=== PATIENT | male | born 1985 | race American Indian/Alaskan Native ===

== ENCOUNTER 2016-07-29 20:22 | Emergency (ER) | payer MEDICARE ==
[2016-07-29 23:53] VITALS: BP 157/134
[2016-07-30 00:51] LABS: Hematocrit 42.5 % (35.5-45.6); Mean Corpuscular HGB Conc 33 % (32-34); Mean Corpuscular Hemoglobin 29 pg (28-32); Mean Corpuscular Volume 89 fl (84-94); Platelet Count 268 K/mm3 (140-440); Red Blood Count 4.78 M/mm3 (3.65-5.03); Red Cell Distribution Width 14.1 % (13.2-15.2); White Blood Count 7.5 K/mm3 (4.5-11.0)
[2016-07-30 01:03] LABS: BUN/Creatinine Ratio 11.11; Blood Urea Nitrogen 10 mg/dL (9-20); Carbon Dioxide 25 mmol/L (22-30); Chloride 101.4 mmol/L (98-107); Glucose 95 mg/dL (75-100); Potassium 4.2 mmol/L (3.6-5.0); Sodium 139 mmol/L (137-145)
[2016-07-30 01:04] LABS: Anion Gap 17 mmol/L
[2016-07-30 03:25] LABS: Basophils % (Manual) 0 % (0.0-1.8); Blastocytes % (Manual) 0 %
[2016-07-30 03:26] LABS: Diff Status Complete; RBC Morphology Normal
--- NOTE | 2016-07-30 13:29 | ED Elopement Review ---
ED Pt Elopement review - Results review Lab results: Laboratory Tests 07/30/16 07/30/16 07/30/16 00:29 00:29 00:29 WBC 7.5 RBC 4.78 Hgb 14.0 Hct 42.5 MCV 89 MCH 29 MCHC 33 RDW 14.1 Plt Count 268 Baso % (Auto) Real Estate Operations Manager Add Manual Diff Complete Total Counted 100 Seg Neuts % (Manual) 43.0 Band Neutrophils % 0 Lymphocytes % (Manual) 48.0 H Reactive Lymphs % (Man) 0 Monocytes % (Manual) 8.0 H Eosinophils % (Manual) 1.0 Basophils % (Manual) 0 Metamyelocytes % 0 Myelocytes % 0 Promyelocytes % 0 Blast Cells % 0 Nucleated RBC % Not Reportable Seg Neutrophils # Man 3.2 Band Neutrophils # 0.0 Lymphocytes # (Manual) 3.6 Abs React Lymphs (Man) 0.0 Monocytes # (Manual) 0.6 Eosinophils # (Manual) 0.1 Basophils # (Manual) 0.0 Metamyelocytes # 0.0 Myelocytes # 0.0 Promyelocytes # 0.0 Blast Cells # 0.0 WBC Morphology Not Reportable Hypersegmented Neuts Not Reportable Hyposegmented Neuts Not Reportable Hypogranular Neuts Not Reportable Smudge Cells Not Reportable Toxic Granulation Not Reportable Toxic Vacuolation Not Reportable Dohle Bodies Not Reportable Pelger-Huet Anomaly Not Reportable Migdalia Rods Not Reportable Platelet Estimate Appears normal Clumped Platelets Not Reportable Plt Clumps, EDTA Not Reportable Large Platelets Not Reportable Giant Platelets Not Reportable Platelet Satelliting Not Reportable Plt Morphology Comment Not Reportable RBC Morphology Normal Dimorphic RBCs Not Reportable Polychromasia Not Reportable Hypochromasia Not Reportable Poikilocytosis Not Reportable Anisocytosis Not Reportable Microcytosis Not Reportable Macrocytosis Not Reportable Spherocytes Not Reportable Pappenheimer Bodies Not Reportable Sickle Cells Not Reportable Target Cells Not Reportable Tear Drop Cells Not Reportable Ovalocytes Not Reportable Helmet Cells Not Reportable Royal-[place]don Bodies Not Reportable Rulo Rings Not Reportable Willard Cells Not Reportable Bite Cells Not Reportable Crenated Cell Not Reportable Elliptocytes Not Reportable Acanthocytes (Spur) Not Reportable Rouleaux Not Reportable Hemoglobin C Crystals Not Reportable Schistocytes Not Reportable Malaria parasites Not Reportable Vinicius Bodies Not Reportable Hem Pathologist Commnt No Sodium 139 Potassium 4.2 Chloride 101.4 Carbon Dioxide 25 Anion Gap 17 BUN 10 Creatinine 0.9 Estimated GFR > 60 BUN/Creatinine Ratio 11.11 Glucose 95 Calcium 9.0 Plasma/Serum Alcohol < 0.01 - Call Back decision Pt Call Back Decision: No action required
== END 2016-07-30 02:45 | disposition left against medical advice (07) ==
LOC: ED 20:22
DX: Z00.8 Encounter for other general examination (principal); F31.9 Bipolar disorder, unspecified; F20.9 Schizophrenia, unspecified; Z53.21 Procedure and treatment not carried out due to patient leaving prior to being seen by health care provider
CPT/HCPCS: 36415; 80048; 85007; 85025; G0480; 80320

== ENCOUNTER 2018-12-06 21:59 | Emergency (ER) | payer MEDICARE ==
[2018-12-06] MEDS ORDERED: HALDOL IM PRN (22:27)
[2018-12-06] MEDS ORDERED: ATIVAN IM PRN (22:27)
[2018-12-06] MEDS ORDERED: ATIVAN PO ONE (22:27)
[2018-12-06] MEDS ORDERED: BENADRYL IM PRN (22:27)
--- NOTE | 2018-12-06 22:33 | Emergency Department Report ---
HPI - HPI HPI: [facility] The patient is a 33-year-old male presenting with a chief complaint of auditory, visual hallucinations and homelessness. The patient states she has a history of bipolar disorder and schizophrenia. The patient states he has been "hearing noises" but cannot explain what they are. When asked if he is hearing voices the patient states he does not know. The patient states he is hearing "strange things." The patient also admits to visual hallucinations but states he cannot explain what is seen the patient states "it looks black." Patient denies suicidal or homicidal ideation. Patient appears anxious. The patient states he came to the hospital because he got kicked out of his living facility and was told he could get help at the hospital with finding a place to stay Location: Mental state Duration: [See above] Quality: Auditory and visual hallucination Severity:. Moderate Modifying factors: [see above] Context: [see above] Mode of transportation: [not driving] <GARY PINA - Last Filed: 12/07/18 00:04> <ALEXI HALE - Last Filed: 12/07/18 14:56> - General Time Seen by Provider: 12/06/18 22:19 ED Past Medical Hx - Past Medical History Hx Hypertension: Yes Hx Psychiatric Treatment: Yes (Bipolar, Schizophrenia) - Surgical History Past Surgical History?: No - Family History Family history: no significant - Social History Smoking Status: Current Every Day Smoker (1/2 pack per day) Substance Use Type: None (denies illicit drug use) <GARY PINA - Last Filed: 12/07/18 00:04> <ALEXI HALE - Last Filed: 12/07/18 14:56> - Medications Home Medications: Home Medications Medication Instructions Recorded Confirmed Last Taken Type No Known Home Medications [No 04/16/16 04/16/16 Unknown History Reported Home Medications] ED Review of Systems ROS: Stated complaint: MH Other details as noted in HPI Constitutional: no symptoms reported Eyes: denies: eye pain ENT: denies: throat pain Respiratory: no symptoms reported Cardiovascular: denies: chest pain Endocrine: no symptoms reported Gastrointestinal: denies: abdominal pain Genitourinary: denies: dysuria Musculoskeletal: denies: back pain Neurological: denies: headache Psychiatric: auditory hallucinations, visual hallucinations. denies: homicidal thoughts, suicidal thoughts <YOVANIGARY Gamez - Last Filed: 12/07/18 00:04> ROS: Stated complaint: MH Other details as noted in HPI <ALEXI HALE - Last Filed: 12/07/18 14:56> Physical Exam - Physical Exam Vital Signs: Vital Signs 12/06/18 22:03 Temperature 98.8 F Pulse Rate 121 H Respiratory 18 Rate Blood Pressure 150/102 O2 Sat by Pulse 98 Oximetry Vital Signs 12/06/18 12/06/18 12/06/18 22:03 22:25 22:29 Temperature 98.8 F Pulse Rate 121 H 122 H Respiratory 18 18 20 Rate Blood Pressure 150/102 Blood Pressure 150/86 [Right] O2 Sat by Pulse 98 92 99 Oximetry 12/06/18 12/06/18 22:42 23:34 Temperature Pulse Rate 114 H 99 H Respiratory 20 20 Rate Blood Pressure Blood Pressure [Right] O2 Sat by Pulse 99 98 Oximetry Physical Exam: GENERAL: The patient is well-developed well-nourished male sitting in chair appearing anxious HEENT: Normocephalic. Atraumatic. Extraocular motions are intact. Patient has moist mucous membranes. NECK: Supple. Trachea midline CHEST/LUNGS: Clear to auscultation. There is no respiratory distress noted. HEART/CARDIOVASCULAR: Regular. There is tachycardia. There is no gallop rub or murmur. ABDOMEN: Abdomen is soft, nontender. Patient has normal bowel sounds. There is no abdominal distention. SKIN: There is no rash. There is no edema. There is no diaphoresis. NEURO: The patient is awake, alert, and oriented. The patient is cooperative. The patient has no focal neurologic deficits. The patient has normal speech MUSCULOSKELETAL: There is no evidence of acute injury. <GUCCI PINANATALYA Gamez - Last Filed: 12/07/18 00:04> - Physical Exam Vital Signs: Vital Signs 12/06/18 12/06/18 12/06/18 22:03 22:25 22:29 Temperature 98.8 F Pulse Rate 121 H 122 H Respiratory 18 18 20 Rate Blood Pressure 150/102 Blood Pressure 150/86 [Right] O2 Sat by Pulse 98 92 99 Oximetry 12/06/18 12/06/18 12/07/18 22:42 23:34 03:19 Temperature 98.8 F Pulse Rate 114 H 99 H 106 H Respiratory 20 20 20 Rate Blood Pressure Blood Pressure 150/96 [Right] O2 Sat by Pulse 99 98 96 Oximetry <ALEXI HALE - Last Filed: 12/07/18 14:56> ED Course Vital Signs 12/06/18 22:03 Temperature 98.8 F Pulse Rate 121 H Respiratory 18 Rate Blood Pressure 150/102 O2 Sat by Pulse 98 Oximetry <HOSSEINRashidGARY - Last Filed: 12/07/18 00:04> Vital Signs 12/06/18 12/06/18 12/06/18 22:03 22:25 22:29 Temperature 98.8 F Pulse Rate 121 H 122 H Respiratory 18 18 20 Rate Blood Pressure 150/102 Blood Pressure 150/86 [Right] O2 Sat by Pulse 98 92 99 Oximetry 12/06/18 12/06/18 12/07/18 22:42 23:34 03:19 Temperature 98.8 F Pulse Rate 114 H 99 H 106 H Respiratory 20 20 20 Rate Blood Pressure Blood Pressure 150/96 [Right] O2 Sat by Pulse 99 98 96 Oximetry <ALEXI HALE - Last Filed: 12/07/18 14:56> ED Medical Decision Making - Lab Data Result diagrams: 12/06/18 22:33 12/06/18 22:33 Laboratory Tests 12/06/18 12/06/18 12/06/18 22:30 22:30 22:33 WBC 12.7 H RBC 4.88 Hgb 15.2 Hct 43.5 MCV 89 MCH 31 MCHC 35 H RDW 14.4 Plt Count 283 Lymph % (Auto) 24.5 [place] % (Auto) 7.3 Eos % (Auto) 3.6 Baso % (Auto) 0.7 Lymph # 3.1 [place] # 0.9 H Eos # 0.5 H Baso # 0.1 Seg Neutrophils % 63.9 Seg Neutrophils # 8.1 H Sodium Potassium Chloride Carbon Dioxide Anion Gap BUN Creatinine Estimated GFR BUN/Creatinine Ratio Glucose Calcium Urine Color Yellow Urine Turbidity Clear Urine pH 5.0 Ur Specific [place] 1.030 Urine Protein <15 mg/dl Urine Glucose (UA) Neg Urine Ketones Tr Urine Blood Neg Urine Nitrite Neg Urine Bilirubin Neg Urine Urobilinogen 2.0 Ur Leukocyte Esterase Neg Urine WBC (Auto) 1.0 Urine RBC (Auto) 1.0 U Epithel Cells (Auto) < 1.0 Urine Mucus Few Salicylates Urine Opiates Screen Presumptive negative Urine Methadone Screen Presumptive negative Acetaminophen Ur Barbiturates Screen Presumptive negative Ur Phencyclidine Scrn Presumptive negative Ur Amphetamines Screen Presumptive negative U Benzodiazepines Scrn Presumptive negative Urine Cocaine Screen Presumptive negative U Marijuana (THC) Screen Presumptive negative Plasma/Serum Alcohol 12/06/18 12/06/18 12/06/18 22:33 22:33 22:33 WBC RBC Hgb Hct MCV MCH MCHC RDW Plt Count Lymph % (Auto) [place] % (Auto) Eos % (Auto) Baso % (Auto) Lymph # [place] # Eos # Baso # Seg Neutrophils % Seg Neutrophils # Sodium 137 Potassium 3.9 Chloride 97.7 L Carbon Dioxide 25 Anion Gap 18 BUN 13 Creatinine 1.1 Estimated GFR > 60 BUN/Creatinine Ratio 12 Glucose 113 H Calcium 9.9 Urine Color Urine Turbidity Urine pH Ur Specific [place] Urine Protein Urine Glucose (UA) Urine Ketones Urine Blood Urine Nitrite Urine Bilirubin Urine Urobilinogen Ur Leukocyte Esterase Urine WBC (Auto) Urine RBC (Auto) U Epithel Cells (Auto) Urine Mucus Salicylates < 0.3 L Urine Opiates Screen Urine Methadone Screen Acetaminophen < 5.0 L Ur Barbiturates Screen Ur Phencyclidine Scrn Ur Amphetamines Screen U Benzodiazepines Scrn Urine Cocaine Screen U Marijuana (THC) Screen Plasma/Serum Alcohol 12/06/18 22:33 WBC RBC Hgb Hct MCV MCH MCHC RDW Plt Count Lymph % (Auto) [place] % (Auto) Eos % (Auto) Baso % (Auto) Lymph # [place] # Eos # Baso # Seg Neutrophils % Seg Neutrophils # Sodium Potassium Chloride Carbon Dioxide Anion Gap BUN Creatinine Estimated GFR BUN/Creatinine Ratio Glucose Calcium Urine Color Urine Turbidity Urine pH Ur Specific [place] Urine Protein Urine Glucose (UA) Urine Ketones Urine Blood Urine Nitrite Urine Bilirubin Urine Urobilinogen Ur Leukocyte Esterase Urine WBC (Auto) Urine RBC (Auto) U Epithel Cells (Auto) Urine Mucus Salicylates Urine Opiates Screen Urine Methadone Screen Acetaminophen Ur Barbiturates Screen Ur Phencyclidine Scrn Ur Amphetamines Screen U Benzodiazepines Scrn Urine Cocaine Screen U Marijuana (THC) Screen Plasma/Serum Alcohol < 0.01 - Differential Diagnosis bipolar disorder, harry, homelessness <GARY PINA - Last Filed: 12/07/18 00:04> - Lab Data Result diagrams: 12/06/18 22:33 12/06/18 22:33 - Medical Decision Making Patient has been cleared by our psychiatric team to go to the [facility] with anchor however the patient has elected to be discharged to go to his psychiatric security nurse's house. <ALEXI HALE - Last Filed: 12/07/18 14:56> Critical care attestation.: If time is entered above; I have spent that time in minutes in the direct care of this critically ill patient, excluding procedure time. <GARY PINA - Last Filed: 12/07/18 00:04> Critical care attestation.: If time is entered above; I have spent that time in minutes in the direct care of this critically ill patient, excluding procedure time. <ALEXI HALE - Last Filed: 12/07/18 14:56> ED Disposition <GARY PINA - Last Filed: 12/07/18 00:04> Is pt being admited?: No Does the pt Need Aspirin: No Time of Disposition: 14:55 <ALEXI HALE - Last Filed: 12/07/18 14:56> Clinical Impression: Homelessness, Bipolar disorder Disposition: - TO HOME OR SELFCARE Condition: Stable [facility] [Primary Care Provider[facility] - 3-5 Days
[2018-12-06 23:01] LABS: Basophils # (Auto) 0.1 K/mm3 (0.0-0.1); Basophils % (Auto) 0.7 % (0.0-1.8); Eosinophils # (Auto) 0.5 K/mm3 (0.0-0.4); Eosinophils % (Auto) 3.6 % (0.0-4.3); Hematocrit 43.5 % (35.5-45.6); Hemoglobin 15.2 gm/dl (11.8-15.2); Lymphocytes # (Auto) 3.1 K/mm3 (1.2-5.4); Lymphocytes % (Auto) 24.5 % (13.4-35.0); Mean Corpuscular HGB Conc 35 % (32-34); Mean Corpuscular Volume 89 fl (84-94); Monocytes # (Auto) 0.9 K/mm3 (0.0-0.8); Monocytes % (Auto) 7.3 % (0.0-7.3); Platelet Count 283 K/mm3 (140-440); Red Blood Count 4.88 M/mm3 (3.65-5.03); Red Cell Distribution Width 14.4 % (13.2-15.2)
[2018-12-06 23:20] LABS: BUN/Creatinine Ratio 12; Blood Urea Nitrogen 13 mg/dL (9-20); Calcium 9.9 mg/dL (8.4-10.2); Hemolysis Index 26
[2018-12-06 23:48] LABS: Bilirubin,Urine NEG (Negative); Blood,Urine NEG (Negative); Color,Urine Yellow (Yellow); Mucus,Urine FEW /HPF; Protein,Urine <15 mg/dL mg/dL (Negative)
[2018-12-06 23:56] LABS: Amphetamine Screen,Urine PRESUMPTIVE NEGATIVE; Benzodiazepines Screen,Urine PRESUMPTIVE NEGATIVE; Cannabinoid Screen,Urine PRESUMPTIVE NEGATIVE; Cocaine Screen,Urine PRESUMPTIVE NEGATIVE; Methadone Screen,Urine PRESUMPTIVE NEGATIVE; Opiate Screen,Urine PRESUMPTIVE NEGATIVE
[2018-12-07 03:31] VITALS: BP 150/96
[2018-12-07] MEDS ORDERED: NACL 0.9% 1000 ML 1,000 ML IV ONE (04:08)
[2018-12-07] MEDS ORDERED: NACL 0.9% 1000 ML 1,000 ML ONE (04:11)
== END 2018-12-07 15:08 | disposition home or self-care (01) ==
LOC: ED 21:59 → EEVIPCON 21:59 → ED 12-07 15:08
DX: F31.9 Bipolar disorder, unspecified (principal); Z59.0 Homelessness
CPT/HCPCS: 36415; 80048; 80307; 81001; 85025; 99283; G0480; J7030; 80320

== ENCOUNTER 2018-12-14 22:55 | Emergency (ER) | payer MEDICARE ==
[2018-12-14 23:34] LABS: Basophils # (Auto) 0.1 K/mm3 (0.0-0.1); Basophils % (Auto) 0.5 % (0.0-1.8); Eosinophils # (Auto) 0.4 K/mm3 (0.0-0.4); Eosinophils % (Auto) 2.8 % (0.0-4.3); Hematocrit 43.3 % (35.5-45.6); Hemoglobin 14.6 gm/dl (11.8-15.2); Lymphocytes # (Auto) 3.5 K/mm3 (1.2-5.4); Lymphocytes % (Auto) 25.8 % (13.4-35.0); Mean Corpuscular HGB Conc 34 % (32-34); Mean Corpuscular Volume 89 fl (84-94); Monocytes # (Auto) 0.9 K/mm3 (0.0-0.8); Monocytes % (Auto) 6.6 % (0.0-7.3); Platelet Count 307 K/mm3 (140-440); Red Blood Count 4.87 M/mm3 (3.65-5.03); Red Cell Distribution Width 13.9 % (13.2-15.2)
[2018-12-14 23:43] LABS: Bilirubin,Urine NEG (Negative); Blood,Urine NEG (Negative); Color,Urine Amber (Yellow); Mucus,Urine 2+ /HPF
[2018-12-14 23:49] LABS: Amphetamine Screen,Urine PRESUMPTIVE NEGATIVE; Benzodiazepines Screen,Urine PRESUMPTIVE NEGATIVE; Cannabinoid Screen,Urine PRESUMPTIVE NEGATIVE; Cocaine Screen,Urine PRESUMPTIVE NEGATIVE; Methadone Screen,Urine PRESUMPTIVE NEGATIVE; Opiate Screen,Urine PRESUMPTIVE NEGATIVE
[2018-12-15 00:19] LABS: BUN/Creatinine Ratio 10; Blood Urea Nitrogen 10 mg/dL (9-20); Calcium 9.4 mg/dL (8.4-10.2); Hemolysis Index 8
[2018-12-15] MEDS ORDERED: K-DUR PO ONE (00:59)
--- NOTE | 2018-12-15 01:18 | Emergency Department Report ---
ED Psych HPI - General Chief Complaint: Psych Stated Complaint: MH EVAL/HEARING VOICES Time Seen by Provider: 12/14/18 23:24 Source: patient, old records reviewed Mode of arrival: Ambulatory Limitations: No Limitations - History of Present Illness Initial Comments: 33-year-old male with past smoking history of sleep apnea not currently using CPAP, bipolar disorder, schizophrenia, and hypertension presents to the hospital depending of auditory hallucinations. Patient states the voices are telling him they are going to kill him. He denies suicidal or homicidal ideation. He denies physical complaints. He states he is compliant with his medications. On 12/07 patient was seen here for psychosis as well. Patient was cleared by our psychiatric team to go to the [facility] with anchor however the patient has elected to be discharged to go to his chief wheelage clerk's house. As per medical record - Related Data Home Medications Medication Instructions Recorded Confirmed Last Taken No Known Home Medications [No 04/16/16 12/15/18 Unknown Reported Home Medications] Allergies Allergy/AdvReac Type Severity Reaction Status Date / Time No Known Allergies Allergy Verified 04/17/16 10:26 ED Review of Systems ROS: Stated complaint: MH EVAL/HEARING VOICES Other details as noted in HPI Comment: All other systems reviewed and negative ED Past Medical Hx - Past Medical History Previous Medical History?: Yes Hx Hypertension: Yes Hx Psychiatric Treatment: Yes (Bipolar, Schizophrenia) Additional medical history: Sleep apnea - Surgical History Past Surgical History?: No - Social History Smoking Status: Current Every Day Smoker Substance Use Type: None - Medications Home Medications: Home Medications Medication Instructions Recorded Confirmed Last Taken Type No Known Home Medications [No 04/16/16 12/15/18 Unknown History Reported Home Medications] ED Physical Exam - General Limitations: No Limitations - Other Other exam information: General: No limitations, patient is alert in no acute distress Head exam: Atraumatic, normocephalic Eyes exam: Normal appearance ENT: Moist mucous membrane Neck exam: Normal inspection, full range of motion, no meningismus nontender Respiratory exam: Clear to auscultation bilateral, no wheezes, rales, crackles Cardiovascular: Normal rate and rhythm, normal heart sounds Abdomen: Soft, nondistended, and nontender, with normal bowel sounds, no rebound, or guarding Extremity: Full range of motion normal inspection no deformity Back: Normal Inspection, full range of motion, no tenderness Neurologic: Alert, oriented x3, cranial nerves intact, no motor or sensory de ficit Psychiatric: normal affect, normal mood Skin: Warm, dry, intact ED Course Vital Signs 12/14/18 12/15/18 12/15/18 23:03 00:28 12:15 Temperature 98 F 98.5 F Pulse Rate 114 H 98 H 87 Respiratory 18 Rate Blood Pressure 120/87 124/86 [Right] O2 Sat by Pulse 97 91 Oximetry 12/15/18 12/15/18 12/15/18 19:15 22:45 22:55 Temperature 98.5 F Pulse Rate 93 H 89 Respiratory 24 20 Rate Blood Pressure 128/81 [Right] O2 Sat by Pulse 98 98 98 Oximetry 12/16/18 01:55 Temperature 97.7 F Pulse Rate 80 Respiratory 20 Rate Blood Pressure 141/93 [Right] O2 Sat by Pulse 100 Oximetry - Reevaluation(s) Reevaluation #1: 12/15/18 22:24 Discussed signs this patient has been sleeping throughout the day with history of sleep apnea. A DT was ordered earlier, patient refused. Given that patient does have a history of sleep apnea and has been drowsy all day I have ordered BiPAP support. Will reassess patient's mental status and continued to request cooperation for ABG. Reevaluation #2: 12/15/18 22:59 Patient finally conceded a received ABG which shows a normal pH without significant CO2 retention (compensated with normal ph) therefore BiPAP is not needed. Patient does have mild hypoxia but PaO2 is not low enough to require home oxygen. CPAP attempted but patient also refused. I suspect obesity hypoventilation syndrome and will perform cta to r/u other acute abnormality prior to clearance 12/15/18 23:04 ED Medical Decision Making - Lab Data Result diagrams: 12/14/18 23:15 12/14/18 23:15 Lab Results 12/14/18 12/14/18 12/14/18 Range/Units 23:15 23:15 23:15 WBC (4.5-11.0) K/mm3 RBC (3.65-5.03) M/mm3 Hgb (11.8-15.2) gm/dl Hct (35.5-45.6) % MCV (84-94) fl MCH (28-32) pg MCHC (32-34) % RDW (13.2-15.2) % Plt Count (140-440) K/mm3 Lymph % (Auto) (13.4-35.0) % [place] % (Auto) (0.0-7.3) % Eos % (Auto) (0.0-4.3) % Baso % (Auto) (0.0-1.8) % Lymph # (1.2-5.4) K/mm3 [place] # (0.0-0.8) K/mm3 Eos # (0.0-0.4) K/mm3 Baso # (0.0-0.1) K/mm3 Seg Neutrophils % (40.0-70.0) % Seg Neutrophils # (1.8-7.7) K/mm3 Sodium (137-145) mmol/L Potassium (3.6-5.0) mmol/L Chloride (98-107) mmol/L Carbon Dioxide (22-30) mmol/L Anion Gap mmol/L BUN (9-20) mg/dL Creatinine (0.8-1.5) mg/dL Estimated GFR ml/min BUN/Creatinine Ratio % Glucose (75-100) mg/dL Calcium (8.4-10.2) mg/dL Urine Color [place] (Yellow) Urine Turbidity Slightly-cloudy (Clear) Urine pH 5.0 (5.0-7.0) Ur Specific [place] 1.031 H (1.003-1.030) Urine Protein 30 mg/dl (Negative) mg/dL Urine Glucose (UA) Neg (Negative) mg/dL Urine Ketones Tr (Negative) mg/dL Urine Blood Neg (Negative) Urine Nitrite Neg (Negative) Urine Bilirubin Neg (Negative) Urine Urobilinogen 4.0 (<2.0) mg/dL Ur Leukocyte Esterase Neg (Negative) Urine WBC (Auto) 2.0 (0.0-6.0) /HPF Urine RBC (Auto) 2.0 (0.0-6.0) /HPF Urine Mucus 2+ /HPF Salicylates < 0.3 L (2.8-20.0) mg/dL Urine Opiates Screen Presumptive negative Urine Methadone Screen Presumptive negative Acetaminophen (10.0-30.0) ug/mL Ur Barbiturates Screen Presumptive negative Ur Phencyclidine Scrn Presumptive negative Ur Amphetamines Screen Presumptive negative U Benzodiazepines Scrn Presumptive negative Urine Cocaine Screen Presumptive negative U Marijuana (THC) Screen Presumptive negative Drugs of Abuse Note Disclamer Plasma/Serum Alcohol (0-0.07) % 12/14/18 12/14/18 12/14/18 Range/Units 23:15 23:15 23:15 WBC (4.5-11.0) K/mm3 RBC (3.65-5.03) M/mm3 Hgb (11.8-15.2) gm/dl Hct (35.5-45.6) % MCV (84-94) fl MCH (28-32) pg MCHC (32-34) % RDW (13.2-15.2) % Plt Count (140-440) K/mm3 Lymph % (Auto) (13.4-35.0) % [place] % (Auto) (0.0-7.3) % Eos % (Auto) (0.0-4.3) % Baso % (Auto) (0.0-1.8) % Lymph # (1.2-5.4) K/mm3 [place] # (0.0-0.8) K/mm3 Eos # (0.0-0.4) K/mm3 Baso # (0.0-0.1) K/mm3 Seg Neutrophils % (40.0-70.0) % Seg Neutrophils # (1.8-7.7) K/mm3 Sodium 141 (137-145) mmol/L Potassium 3.1 L (3.6-5.0) mmol/L Chloride 100.4 (98-107) mmol/L Carbon Dioxide 26 (22-30) mmol/L Anion Gap 18 mmol/L BUN 10 (9-20) mg/dL Creatinine 1.0 (0.8-1.5) mg/dL Estimated GFR > 60 ml/min BUN/Creatinine Ratio 10 % Glucose 122 H (75-100) mg/dL Calcium 9.4 (8.4-10.2) mg/dL Urine Color (Yellow) Urine Turbidity (Clear) Urine pH (5.0-7.0) Ur Specific [place] (1.003-1.030) Urine Protein (Negative) mg/dL Urine Glucose (UA) (Negative) mg/dL Urine Ketones (Negative) mg/dL Urine Blood (Negative) Urine Nitrite (Negative) Urine Bilirubin (Negative) Urine Urobilinogen (<2.0) mg/dL Ur Leukocyte Esterase (Negative) Urine WBC (Auto) (0.0-6.0) /HPF Urine RBC (Auto) (0.0-6.0) /HPF Urine Mucus /HPF Salicylates (2.8-20.0) mg/dL Urine Opiates Screen Urine Methadone Screen Acetaminophen < 5.0 L (10.0-30.0) ug/mL Ur Barbiturates Screen Ur Phencyclidine Scrn Ur Amphetamines Screen U Benzodiazepines Scrn Urine Cocaine Screen U Marijuana (THC) Screen Drugs of Abuse Note Plasma/Serum Alcohol < 0.01 (0-0.07) % 12/14/18 Range/Units 23:15 WBC 13.6 H (4.5-11.0) K/mm3 RBC 4.87 (3.65-5.03) M/mm3 Hgb 14.6 (11.8-15.2) gm/dl Hct 43.3 (35.5-45.6) % MCV 89 (84-94) fl MCH 30 (28-32) pg MCHC 34 (32-34) % RDW 13.9 (13.2-15.2) % Plt Count 307 (140-440) K/mm3 Lymph % (Auto) 25.8 (13.4-35.0) % [place] % (Auto) 6.6 (0.0-7.3) % Eos % (Auto) 2.8 (0.0-4.3) % Baso % (Auto) 0.5 (0.0-1.8) % Lymph # 3.5 (1.2-5.4) K/mm3 [place] # 0.9 H (0.0-0.8) K/mm3 Eos # 0.4 (0.0-0.4) K/mm3 Baso # 0.1 (0.0-0.1) K/mm3 Seg Neutrophils % 64.3 (40.0-70.0) % Seg Neutrophils # 8.7 H (1.8-7.7) K/mm3 Sodium (137-145) mmol/L Potassium (3.6-5.0) mmol/L Chloride (98-107) mmol/L Carbon Dioxide (22-30) mmol/L Anion Gap mmol/L BUN (9-20) mg/dL Creatinine (0.8-1.5) mg/dL Estimated GFR ml/min BUN/Creatinine Ratio % Glucose (75-100) mg/dL Calcium (8.4-10.2) mg/dL Urine Color (Yellow) Urine Turbidity (Clear) Urine pH (5.0-7.0) Ur Specific [place] (1.003-1.030) Urine Protein (Negative) mg/dL Urine Glucose (UA) (Negative) mg/dL Urine Ketones (Negative) mg/dL Urine Blood (Negative) Urine Nitrite (Negative) Urine Bilirubin (Negative) Urine Urobilinogen (<2.0) mg/dL Ur Leukocyte Esterase (Negative) Urine WBC (Auto) (0.0-6.0) /HPF Urine RBC (Auto) (0.0-6.0) /HPF Urine Mucus /HPF Salicylates (2.8-20.0) mg/dL Urine Opiates Screen Urine Methadone Screen Acetaminophen (10.0-30.0) ug/mL Ur Barbiturates Screen Ur Phencyclidine Scrn Ur Amphetamines Screen U Benzodiazepines Scrn Urine Cocaine Screen U Marijuana (THC) Screen Drugs of Abuse Note Plasma/Serum Alcohol (0-0.07) % - Radiology Data Radiology results: report reviewed PROCEDURE: CT ANGIO CHEST TECHNIQUE: Computerized tomographic angiography of the chest was performed after the IV injection of iodinated nonionic contrast including image processing. The image data was postprocessed using 2-dimensional multiplanar reformatted (MPR) and 3-dimensional (MIP and/or volume rendered) techniques. Automated exposure control, adjustment of mA and/or kV according to patient size, or iterative reconstruction dose optimization techniques were utilized. HISTORY: mild hypoxia and inc in CO2 COMPARISONS: None . FINDINGS: Heart and pericardium: Normal. Thoracic aorta: There is no evidence of pulmonary arterial emboli. Pulmonary vasculature: Normal. Lymph nodes: No enlarged thoracic lymph nodes. Lungs: The lungs are clear. No infiltrate, effusion or pneumothorax. Pleural space: No effusion, thickening, or pneumothorax. Musculoskeletal structures: No significant abnormality. Upper abdominal structures: No significant abnormality. IMPRESSION: There is no evidence of pulmonary arterial emboli. The lungs are clear. . - Medical Decision Making Patient has psychosis which is chronic. He is voluntary. He is awaiting psychiatric assessment in the morning. 12/16/17 abg without signs of respiratory acidosis. mild Hypoxia noted. CT angiogram chest is unremarkable. ABG results likely secondary to obesity hypoventilation syndrome. Since PO2 is greater than 60 patient does not qualify or need home oxygen. CPAP while sleeping was offered but refused by the patient. Patient is medically cleared for psychiatric transfer. [id number] was signed by mental health continuous mining machine coal miner DIEGO Vo. - Differential Diagnosis med noncompliance, bipolar, schizophrenia, psychosis, drug abuse Critical Care Time: No Critical care attestation.: If time is entered above; I have spent that time in minutes in the direct care of this critically ill patient, excluding procedure time. ED Disposition Clinical Impression: Bipolar disorder, Homelessness, Schizophrenia, Medical clearance for psychiatric admission Disposition: [id number] PSY HOSP/PSY UNIT Is pt being admited?: No Condition: Stable Time of Disposition: 02:53
--- NOTE | 2018-12-15 10:34 | Consultation ---
History of Present Illness - Reason for Consult Consult date: 12/15/18 Reason for consult: Mental Health Evaluation Requesting physician: KULDEEP ALVA - Chief Complaint Chief complaint: "The patient is drowsy and cannot stay awake" - History of Present Psychiatric Illness 33-year-old AA male who presented to the ER for a mental health eval. Today the patient was drowsy and wouldn't stay awake during the assessment. Will attempt to assess the patent in 24 hours. Per the record, the patient has a hx of sleep apnea. Medications and Allergies Allergies Allergy/AdvReac Type Severity Reaction Status Date / Time No Known Allergies Allergy Verified 04/17/16 10:26 Home Medications Medication Instructions Recorded Confirmed Last Taken Type No Known Home Medications [No 04/16/16 12/15/18 Unknown History Reported Home Medications] Past psychiatric history - Past Medical History Past Medical History: other (Unable to obtain ) Past Surgical History: Other (Unable to obtain ) - past Psychiatric treatment and history psychiatric treatment history: Unable to obtain a psy hx and fam psy hx. - Social History Social history: other (Unable to obtain ) Mental Status Exam - Vital signs Last Vital Signs Temp 98 F 12/14/18 23:03 Pulse 98 H 12/15/18 00:28 Resp 18 12/14/18 23:03 BP 120/87 12/14/18 23:03 Pulse Ox 97 12/14/18 23:03 - Exam Narrative exam: Unable to complete the MSE because of the patient's condition. Results Result Diagrams: 12/14/18 23:15 12/14/18 23:15 Abnormal lab results 12/14/18 12/14/18 12/14/18 Range/Units 23:15 23:15 23:15 WBC (4.5-11.0) K/mm3 [place] # (0.0-0.8) K/mm3 Seg Neutrophils # (1.8-7.7) K/mm3 Potassium (3.6-5.0) mmol/L Glucose (75-100) mg/dL Ur Specific [place] 1.031 H (1.003-1.030) Salicylates < 0.3 L (2.8-20.0) mg/dL Acetaminophen < 5.0 L (10.0-30.0) ug/mL 12/14/18 12/14/18 Range/Units 23:15 23:15 WBC 13.6 H (4.5-11.0) K/mm3 [place] # 0.9 H (0.0-0.8) K/mm3 Seg Neutrophils # 8.7 H (1.8-7.7) K/mm3 Potassium 3.1 L (3.6-5.0) mmol/L Glucose 122 H (75-100) mg/dL Ur Specific [place] (1.003-1.030) Salicylates (2.8-20.0) mg/dL Acetaminophen (10.0-30.0) ug/mL All other labs normal. Assessment and Plan Assessment and plan: Impression: Today the patient was drowsy and wouldn't stay awake during the assessment. UDS is negative. Recommendation/Plan: Attempt to reassess the patient in 24 hours. Disp: Proper dispo will be determined after a psy assessment is completed in 24 hours. Will staff with Dr. Ethan Billings.
[2018-12-15] MEDS ORDERED: INVEGA PO SCH (19:00)
--- NOTE | 2018-12-16 00:15 | Cat Scan Report ---
PROCEDURE: CT ANGIO CHEST TECHNIQUE: Computerized tomographic angiography of the chest was performed after the IV injection of iodinated nonionic contrast including image processing. The image data was postprocessed using 2-di mensional multiplanar reformatted (MPR) and 3-dimensional (MIP and/or volume rendered) techniques. Au tomated exposure control, adjustment of mA and/or kV according to patient size, or iterative reconstr uction dose optimization techniques were utilized. HISTORY: mild hypoxia and inc in CO2 COMPARISONS: None . FINDINGS: Heart and pericardium: Normal. Thoracic aorta: There is no evidence of pulmonary arterial emboli. Pulmonary vasculature: Normal. Lymph nodes: No enlarged thoracic lymph nodes. Lungs: The lungs are clear. No infiltrate, effusion or pneumothorax. Pleural space: No effusion, thickening, or pneumothorax. Musculoskeletal structures: No significant abnormality. Upper abdominal structures: No significant abnormality. IMPRESSION: There is no evidence of pulmonary arterial emboli. The lungs are clear. . This document is electronically signed by Jess Calvert DO., December 16 2018 01:13:18 AM ET
[2018-12-16] MEDS: K-DUR PO ONE ×2 (03:30)
[2018-12-16 08:34] VITALS: BP 136/78
--- NOTE | 2018-12-16 13:32 | Progress Note ---
Subjective - Reason for Consult Consult date: 12/16/18 Reason for consult: Psychiatry Follow-up - Chief Complaint Chief complaint: "I hope to get better" 33-year-old AA male who presented to the ER for a mental health eval. Today the patient was more awake during the assessment. He would not confirm or deny that he isn't hearing "voices from the TV" when asked. He seem somewhat preoccupied. per the MAR, the patient refused his medication last night (Invega). He denies SI/HI's and VH's. Mental Status Exam - Vital signs Last Vital Signs Temp 97.8 F 12/16/18 08:34 Pulse 85 12/16/18 08:34 Resp 20 12/16/18 08:34 BP 136/78 12/16/18 08:34 Pulse Ox 94 12/16/18 08:34 - Exam Narrative exam: MSE: Appearance: calm, cooperative Behavior: regular eye contact Speech: regular rate and tone Mood:: "okay" Affect: congruent to mood Thought Process: circumstantial Thought Content: denies SI/HI's and VH's, somewhat delusional, paranoia Motor Activity: ambulatory Cognition: A/O x3 Insight: variable Judgment: variable Assessment and Plan Impression: Unspecified Psychosis. Today the patient was calm, but somewhat delusional during the assessment. DDx: Schizophrenia, Bipolar DO Recommendation/Plan: Continue 1013 and Invega 3 mg PO daily for psychosis. Discussed possible metabolic side effects of Invega with the patent, he verbalized understanding. Dispo: The patient was accepted at [facility], [place] for inpatient psy services. Will staff with Dr. Ethan Billings.
== END 2018-12-16 13:16 ==
LOC: EEVIPCON 22:55 → ED 22:55
DX: F31.9 Bipolar disorder, unspecified (principal); F20.9 Schizophrenia, unspecified; Z59.0 Homelessness; I10 Essential (primary) hypertension; G47.30 Sleep apnea, unspecified
CPT/HCPCS: 36415; 80048; 80307; 81001; 82803; 85025; 99285; G0480; 71275; 80320; Q9967

== ENCOUNTER 2019-01-18 23:02 | Emergency (ER) | payer MEDICARE ==
[2019-01-18 23:57] LABS: Basophils # (Auto) 0.1 K/mm3 (0.0-0.1); Basophils % (Auto) 0.6 % (0.0-1.8); Eosinophils # (Auto) 0.5 K/mm3 (0.0-0.4); Eosinophils % (Auto) 3.4 % (0.0-4.3); Hematocrit 44.3 % (35.5-45.6); Hemoglobin 14.8 gm/dl (11.8-15.2); Lymphocytes # (Auto) 3.4 K/mm3 (1.2-5.4); Lymphocytes % (Auto) 24.6 % (13.4-35.0); Mean Corpuscular HGB Conc 33 % (32-34); Mean Corpuscular Volume 89 fl (84-94); Monocytes % (Auto) 7.3 % (0.0-7.3); Platelet Count 296 K/mm3 (140-440); Red Blood Count 4.96 M/mm3 (3.65-5.03); Red Cell Distribution Width 13.9 % (13.2-15.2)
--- NOTE | 2019-01-19 00:03 | Emergency Department Report ---
HPI - HPI HPI: Room 13 The patient is a 33-year-old male presenting with chief complaint of auditory hallucinations. Patient has a history of schizophrenia states she has been off his medication for approximately 2 weeks. Patient states she came to the emergency department today because he "lost" his place. Patient admits to auditory hallucinations for the past 3 days "telling me everything about myself." The patient states the voices say things such as "will keep bothering you." The patient is to visual hallucinations stating he sees a "real human being standing over me." And seeing "little black faces." Patient denies suicidal or homicidal ideation. Location: Mental state Duration: [See above] Quality: [See above] Severity: [See above] Modifying factors: [see above] Context: [see above] Mode of transportation: [not driving] <GARY PINA - Last Filed: 01/19/19 01:37> <ALEXI HALE - Last Filed: 01/20/19 11:09> - General Chief Complaint: Psych Time Seen by Provider: 01/18/19 23:29 ED Past Medical Hx - Past Medical History Previous Medical History?: Yes Hx Hypertension: Yes Hx Psychiatric Treatment: Yes (bipolar schizo) Additional medical history: Sleep apnea - Surgical History Past Surgical History?: No - Family History Family history: no significant - Social History Smoking Status: Current Every Day Smoker (1 pack per day) Substance Use Type: None <GARY PINA - Last Filed: 01/19/19 01:37> <ALEXI HALE - Last Filed: 01/20/19 11:09> - Medications Home Medications: Home Medications Medication Instructions Recorded Confirmed Last Taken Type No Known Home Medications [No 04/16/16 12/15/18 Unknown History Reported Home Medications] ED Review of Systems ROS: Stated complaint: MH EVAL/HEARING VOICES Other details as noted in HPI Constitutional: no symptoms reported Eyes: denies: eye pain ENT: denies: throat pain Respiratory: no symptoms reported Cardiovascular: denies: chest pain Endocrine: no symptoms reported Gastrointestinal: denies: abdominal pain Genitourinary: denies: dysuria Musculoskeletal: denies: back pain Skin: denies: lesions Neurological: denies: headache Psychiatric: auditory hallucinations, visual hallucinations. denies: homicidal thoughts, suicidal thoughts <GARY PINA - Last Filed: 01/19/19 01:37> ROS: Stated complaint: MH EVAL/HEARING VOICES Other details as noted in HPI <ALEXI HALE - Last Filed: 01/20/19 11:09> Physical Exam - Physical Exam Physical Exam: GENERAL: The patient is well-developed well-nourished male lying on a stretcher not appearing to be in acute distress. [] HEENT: Normocephalic. Atraumatic. Extraocular motions are intact. Patient has moist mucous membranes. NECK: Supple. No meningitic signs are noted. There is no adenopathy noted. CHEST/LUNGS: Clear to auscultation. There is no respiratory distress noted. HEART/CARDIOVASCULAR: Regular. There is no tachycardia. There is no gallop rub or murmur. ABDOMEN: Abdomen is soft, nontender. Patient has normal bowel sounds. There is no abdominal distention. SKIN: There is no rash. There is no edema. There is no diaphoresis. NEURO: The patient is awake, alert, and oriented. The patient is cooperative. The patient has no focal neurologic deficits. The patient has normal speech MUSCULOSKELETAL: There is no evidence of acute injury. <HOSSEINRashidGARY Franco - Last Filed: 01/19/19 01:37> - Physical Exam Vital Signs: Vital Signs 01/19/19 01/19/19 01/19/19 01:05 14:05 19:05 Temperature 98.7 F 98.2 F Pulse Rate 88 101 H 98 H Respiratory 18 18 18 Rate Blood Pressure 121/80 139/70 121/78 [Right] O2 Sat by Pulse 96 96 98 Oximetry <ALEXI HALE - Last Filed: 01/20/19 11:09> ED Course Vital Signs 01/19/19 01/19/19 01/19/19 01:05 14:05 19:05 Temperature 98.7 F 98.2 F Pulse Rate 88 101 H 98 H Respiratory 18 18 18 Rate Blood Pressure 121/80 139/70 121/78 [Right] O2 Sat by Pulse 96 96 98 Oximetry <ALEXI HALE Last Filed: 01/20/19 11:09> ED Medical Decision Making - Lab Data Result diagrams: 01/18/19 23:46 01/18/19 23:46 Laboratory Tests 01/18/19 01/18/19 01/18/19 00:00 23:20 23:46 WBC RBC Hgb Hct MCV MCH MCHC RDW Plt Count Lymph % (Auto) [place] % (Auto) Eos % (Auto) Baso % (Auto) Lymph # [place] # Eos # Baso # Seg Neutrophils % Seg Neutrophils # Sodium Potassium Chloride Carbon Dioxide Anion Gap BUN Creatinine Estimated GFR BUN/Creatinine Ratio Glucose Calcium Urine Color Yellow Urine Turbidity Clear Urine pH 5.0 Ur Specific [place] 1.026 Urine Protein <15 mg/dl Urine Glucose (UA) Neg Urine Ketones Neg Urine Blood Neg Urine Nitrite Neg Ur Reducing Substances Not Reportable Urine Bilirubin Neg Urine Ictotest Not Reportable Urine Urobilinogen 2.0 Ur Leukocyte Esterase Neg Urine WBC (Auto) < 1.0 Urine RBC (Auto) 3.0 U Epithel Cells (Auto) < 1.0 Urine Mucus Few Salicylates < 0.3 L Urine Opiates Screen Presumptive negative Urine Methadone Screen Presumptive negative Acetaminophen Ur Barbiturates Screen Presumptive negative Ur Phencyclidine Scrn Presumptive negative Ur Amphetamines Screen Presumptive negative U Benzodiazepines Scrn Presumptive negative Urine Cocaine Screen Presumptive negative U Marijuana (THC) Screen Presumptive negative Drugs of Abuse Note Disclamer Plasma/Serum Alcohol 01/18/19 01/18/19 01/18/19 23:46 23:46 23:46 WBC RBC Hgb Hct MCV MCH MCHC RDW Plt Count Lymph % (Auto) [place] % (Auto) Eos % (Auto) Baso % (Auto) Lymph # [place] # Eos # Baso # Seg Neutrophils % Seg Neutrophils # Sodium 133 L Potassium 3.5 L Chloride 97.5 L Carbon Dioxide 24 Anion Gap 15 BUN 10 Creatinine 1.0 Estimated GFR > 60 BUN/Creatinine Ratio 10 Glucose 159 H Calcium 9.9 Urine Color Urine Turbidity Urine pH Ur Specific [place] Urine Protein Urine Glucose (UA) Urine Ketones Urine Blood Urine Nitrite Ur Reducing Substances Urine Bilirubin Urine Ictotest Urine Urobilinogen Ur Leukocyte Esterase Urine WBC (Auto) Urine RBC (Auto) U Epithel Cells (Auto) Urine Mucus Salicylates Urine Opiates Screen Urine Methadone Screen Acetaminophen < 5.0 L Ur Barbiturates Screen Ur Phencyclidine Scrn Ur Amphetamines Screen U Benzodiazepines Scrn Urine Cocaine Screen U Marijuana (THC) Screen Drugs of Abuse Note Plasma/Serum Alcohol < 0.01 01/18/19 23:46 WBC 13.9 H RBC 4.96 Hgb 14.8 Hct 44.3 MCV 89 MCH 30 MCHC 33 RDW 13.9 Plt Count 296 Lymph % (Auto) 24.6 [place] % (Auto) 7.3 Eos % (Auto) 3.4 Baso % (Auto) 0.6 Lymph # 3.4 [place] # 1.0 H Eos # 0.5 H Baso # 0.1 Seg Neutrophils % 64.1 Seg Neutrophils # 8.9 H Sodium Potassium Chloride Carbon Dioxide Anion Gap BUN Creatinine Estimated GFR BUN/Creatinine Ratio Glucose Calcium Urine Color Urine Turbidity Urine pH Ur Specific [place] Urine Protein Urine Glucose (UA) Urine Ketones Urine Blood Urine Nitrite Ur Reducing Substances Urine Bilirubin Urine Ictotest Urine Urobilinogen Ur Leukocyte Esterase Urine WBC (Auto) Urine RBC (Auto) U Epithel Cells (Auto) Urine Mucus Salicylates Urine Opiates Screen Urine Methadone Screen Acetaminophen Ur Barbiturates Screen Ur Phencyclidine Scrn Ur Amphetamines Screen U Benzodiazepines Scrn Urine Cocaine Screen U Marijuana (THC) Screen Drugs of Abuse Note Plasma/Serum Alcohol - Differential Diagnosis schizophrenia <GARY PINA - Last Filed: 01/19/19 01:37> - Lab Data Result diagrams: 01/18/19 23:46 01/18/19 23:46 - Medical Decision Making Patient is a 33-year-old male with a past medical history schizophrenia is here requesting help with housing. Patient was given some outpatient resources be discharged <ALEXI HALE - Last Filed: 01/20/19 11:09> Critical care attestation.: If time is entered above; I have spent that time in minutes in the direct care of this critically ill patient, excluding procedure time. <GARY PINA - Last Filed: 01/19/19 01:37> Critical care attestation.: If time is entered above; I have spent that time in minutes in the direct care of this critically ill patient, excluding procedure time. <ALEXI HALE - Last Filed: 01/20/19 11:09> ED Disposition Is pt being admited?: No Does the pt Need Aspirin: No Time of Disposition: 01:38 (awaiting social work for placement) <GARY PINA - Last Filed: 01/19/19 01:37> Is pt being admited?: No Does the pt Need Aspirin: No <ALEXI HALE - Last Filed: 01/20/19 11:09> Clinical Impression: Schizophrenia, Homelessness Disposition: - TO HOME OR SELFCARE Condition: Stable Referrals: PRIMARY [facility]ARE,MD [Primary Care Provider] - 3-5 Days
[2019-01-19] MEDS ORDERED: BENADRYL IM PRN (00:06)
[2019-01-19] MEDS ORDERED: HALDOL IM PRN (00:06)
[2019-01-19] MEDS ORDERED: ATIVAN IM PRN (00:06)
[2019-01-19 00:14] LABS: Bilirubin,Urine NEG (Negative); Blood,Urine NEG (Negative); Color,Urine Yellow (Yellow); Mucus,Urine FEW /HPF; Protein,Urine <15 mg/dL mg/dL (Negative)
[2019-01-19 00:20] LABS: BUN/Creatinine Ratio 10; Blood Urea Nitrogen 10 mg/dL (9-20); Calcium 9.9 mg/dL (8.4-10.2); Hemolysis Index 11
[2019-01-19 00:22] LABS: WBC,Urine < 1.0 /HPF (0.0-6.0)
[2019-01-20 12:07] VITALS: BP 114/83
== END 2019-01-20 12:18 | disposition home or self-care (01) ==
LOC: ED 23:02 → EEVIPCON 23:02 → ED 01-20 12:18
DX: F20.9 Schizophrenia, unspecified (principal); I10 Essential (primary) hypertension; F31.9 Bipolar disorder, unspecified; F17.210 Nicotine dependence, cigarettes, uncomplicated; Z59.0 Homelessness
CPT/HCPCS: 36415; 80048; 80307; 81001; 85025; 99284; G0480; 80320; 99285

== ENCOUNTER 2019-02-20 16:46 | Emergency (ER) | payer MEDICARE ==
--- NOTE | 2019-02-20 17:17 | Event Note ---
ED Screening Note Date of service: 02/20/19 Time: 17:13 ED Screening Note: This is a 33 y.o. M. that presents to the ER for medication refills. [facility] H of bipolar and schizophrenia. Patient states he live in a personal [place] [facility] and sent here for refills. Patient not sure of psychiatrist name. Current smoker Reports off medication for 1 month. States he is hearing voices. Denies SI/HI. This initial assessment/diagnostic orders/clinical plan/treatment(s) is/are subject to change based on patients health status, clinical progression and re- assessment by fellow clinical providers in the ED. Further treatment and workup at subsequent clinical providers discretion. Patient/guardian urged not to elope from the ED as their condition may be serious if not clinically assessed and managed. Initial orders include: Main ED
[2019-02-20 17:36] LABS: Basophils # (Auto) 0.1 K/mm3 (0.0-0.1); Basophils % (Auto) 0.8 % (0.0-1.8); Eosinophils # (Auto) 0.3 K/mm3 (0.0-0.4); Eosinophils % (Auto) 2.4 % (0.0-4.3); Hematocrit 44.2 % (35.5-45.6); Hemoglobin 15.1 gm/dl (11.8-15.2); Lymphocytes # (Auto) 3.9 K/mm3 (1.2-5.4); Lymphocytes % (Auto) 27.7 % (13.4-35.0); Mean Corpuscular HGB Conc 34 % (32-34); Mean Corpuscular Volume 88 fl (84-94); Monocytes # (Auto) 0.9 K/mm3 (0.0-0.8); Monocytes % (Auto) 6.5 % (0.0-7.3); Platelet Count 326 K/mm3 (140-440); Red Blood Count 5.02 M/mm3 (3.65-5.03)
[2019-02-20 17:56] LABS: BUN/Creatinine Ratio 11; Blood Urea Nitrogen 10 mg/dL (9-20); Calcium 9.1 mg/dL (8.4-10.2); Hemolysis Index 48
--- NOTE | 2019-02-20 20:13 | Emergency Department Report ---
ED General Adult HPI - General Chief complaint: Medical Clearance Stated complaint: MH EVALUATION Time Seen by Provider: 02/20/19 17:12 Source: patient Mode of arrival: Ambulatory Limitations: No Limitations - History of Present Illness Initial comments: 33 yo M w/ hx of schizophrenia and bipolar presents to ED requesting refill on his psychiatric medications. Pt states he does not have a psychiatrist to refill his meds, seroquel and geodon, x 1 month. Denies SI, HI. -: month(s) (1) Associated Symptoms: denies other symptoms Treatments Prior to Arrival: none - Related Data Home Medications Medication Instructions Recorded Confirmed Last Taken No Known Home Medications [No 04/16/16 12/15/18 Unknown Reported Home Medications] Allergies Allergy/AdvReac Type Severity Reaction Status Date / Time No Known Allergies Allergy Verified 02/20/19 17:06 ED Review of Systems ROS: Stated complaint: MH EVALUATION Other details as noted in HPI Comment: All other systems reviewed and negative Psychiatric: denies: depression, auditory hallucinations, visual hallucinations, homicidal thoughts, suicidal thoughts ED Past Medical Hx - Past Medical History Hx Hypertension: Yes Hx Psychiatric Treatment: Yes (bipolar schizo) Additional medical history: Sleep apnea - Social History Smoking Status: Current Every Day Smoker Substance Use Type: None - Medications Home Medications: Home Medications Medication Instructions Recorded Confirmed Last Taken Type No Known Home Medications [No 04/16/16 12/15/18 Unknown History Reported Home Medications] ED Physical Exam - General Limitations: No Limitations General appearance: alert, in no apparent distress - Head Head exam: Present: atraumatic, normocephalic - Eye Eye exam: Present: normal appearance, PERRL, EOMI - ENT ENT exam: Present: mucous membranes moist - Neck Neck exam: Present: normal inspection - Respiratory Respiratory exam: Present: normal lung sounds bilaterally. Absent: respiratory distress - Cardiovascular Cardiovascular Exam: Present: regular rate, normal rhythm - GI/Abdominal GI/Abdominal exam: Absent: distended - Extremities Exam Extremities exam: Present: normal inspection - Neurological Exam Neurological exam: Present: alert, oriented X3 - Psychiatric Psychiatric exam: Present: normal affect, normal mood. Absent: agitated, homicidal ideation, suicidal ideation - Skin Skin exam: Present: warm, dry, intact, normal color ED Course Vital Signs 02/20/19 02/20/19 17:13 19:30 Temperature 98.6 F 98.2 F Pulse Rate 121 H 99 H Respiratory 18 16 Rate Blood Pressure 121/86 Blood Pressure 120/51 [Left] O2 Sat by Pulse 96 97 Oximetry ED Medical Decision Making - Lab Data Result diagrams: 02/20/19 17:22 02/20/19 17:22 - Medical Decision Making Pt does not meet inpatient criteria. Denies SI, HI. [facility] by [facility] Outpatient resources given. Pt does not appear to be acutely psychotic at this time. He is pleasant and cooperative. - Differential Diagnosis schizophrenia Critical care attestation.: If time is entered above; I have spent that time in minutes in the direct care of this critically ill patient, excluding procedure time. ED Disposition Clinical Impression: Schizophrenia, Encounter for medication refill Disposition: DC-01 TO HOME OR SELFCARE Is pt being admited?: No Condition: Stable Instructions: Schizophrenia (ED) Referrals: [facility] [Outside] - 3-5 Days Time of Disposition: 20:19
[2019-02-20 20:25] VITALS: BP 120/51
== END 2019-02-20 21:22 | disposition home or self-care (01) ==
LOC: ED 16:46
DX: F20.9 Schizophrenia, unspecified (principal); F31.9 Bipolar disorder, unspecified; Z76.0 Encounter for issue of repeat prescription; I10 Essential (primary) hypertension; G47.30 Sleep apnea, unspecified; F17.200 Nicotine dependence, unspecified, uncomplicated
CPT/HCPCS: 36415; 80048; 80320; 85025; 99283; G0480

== ENCOUNTER 2019-02-27 02:46 | Emergency (ER) | payer MEDICARE ==
[2019-02-27 04:11] LABS: Basophils # (Auto) 0.1 K/mm3 (0.0-0.1); Basophils % (Auto) 0.6 % (0.0-1.8); Eosinophils # (Auto) 0.4 K/mm3 (0.0-0.4); Eosinophils % (Auto) 2.8 % (0.0-4.3); Hematocrit 44.4 % (35.5-45.6); Hemoglobin 15.1 gm/dl (11.8-15.2); Lymphocytes # (Auto) 3.4 K/mm3 (1.2-5.4); Lymphocytes % (Auto) 23.1 % (13.4-35.0); Mean Corpuscular HGB Conc 34 % (32-34); Mean Corpuscular Volume 87 fl (84-94); Monocytes # (Auto) 1.1 K/mm3 (0.0-0.8); Monocytes % (Auto) 7.3 % (0.0-7.3); Platelet Count 316 K/mm3 (140-440); Red Cell Distribution Width 13.6 % (13.2-15.2)
[2019-02-27 04:16] LABS: Bilirubin,Urine NEG (Negative); Blood,Urine NEG (Negative); Color,Urine Yellow (Yellow); Mucus,Urine FEW /HPF; Protein,Urine <15 mg/dL mg/dL (Negative)
[2019-02-27 04:22] LABS: Amphetamine Screen,Urine PRESUMPTIVE NEGATIVE; Benzodiazepines Screen,Urine PRESUMPTIVE NEGATIVE; Cannabinoid Screen,Urine PRESUMPTIVE NEGATIVE; Cocaine Screen,Urine PRESUMPTIVE NEGATIVE; Methadone Screen,Urine PRESUMPTIVE NEGATIVE; Opiate Screen,Urine PRESUMPTIVE NEGATIVE
[2019-02-27 04:27] LABS: BUN/Creatinine Ratio 14; Blood Urea Nitrogen 14 mg/dL (9-20); Calcium 9.3 mg/dL (8.4-10.2); Hemolysis Index 14
[2019-02-27] MEDS ORDERED: K-DUR PO ONE ×3 (04:53→20:39)
--- NOTE | 2019-02-27 05:57 | Emergency Department Report ---
ED Psych HPI - General Chief Complaint: Psych Stated Complaint: HEARING VOICES Time Seen by Provider: 02/27/19 03:23 Source: patient, EMS Mode of arrival: Ambulatory Limitations: No Limitations - History of Present Illness Initial Comments: 33-year-old male with a past medical history of hypertension, bipolar, schizophrenia, and sleep apnea presents to Hospital complaining of hearing voices for the last 3 days. Noncompliant with his Seroquel for at least 2 months. Currently homeless and because requesting admission to [facility]. He denies suicidal ideation, homicidal ideation. - Related Data Home Medications Medication Instructions Recorded Confirmed Last Taken No Known Home Medications [No 04/16/16 12/15/18 Unknown Reported Home Medications] Allergies Allergy/AdvReac Type Severity Reaction Status Date / Time No Known Allergies Allergy Verified 02/20/19 17:06 ED Review of Systems ROS: Stated complaint: HEARING VOICES Other details as noted in HPI Comment: All other systems reviewed and negative ED Past Medical Hx - Past Medical History Previous Medical History?: Yes Hx Hypertension: Yes Hx Psychiatric Treatment: Yes (bipolar schizo) Additional medical history: Sleep apnea - Social History Smoking Status: Never Smoker Substance Use Type: None - Medications Home Medications: Home Medications Medication Instructions Recorded Confirmed Last Taken Type No Known Home Medications [No 04/16/16 12/15/18 Unknown History Reported Home Medications] ED Physical Exam - General Limitations: No Limitations - Other Other exam information: General: No acute distress Eyes: Normal appearance, pupils equal reactive to light, extraocular movements intact ENT: Normal oropharynx Neck: Normal appearance, no C-spine tenderness, no meningismus Chest: Clear to auscultation bilaterally, no wheezes, rales, or crackles Cardiovascular: Regular rate and rhythm Abdomen: Soft, nondistended, nontender, no rebound or guarding, normal bowel sounds Back: Normal inspection, nontender Extremity: Normal inspection, no deformity, full range of motion Neuro: Bases sleeping and drowsy, arousable, alert and oriented once he is awake. No motor or sensory deficit noted. Skin: No rash, warmth, or erythema ED Course Vital Signs 02/27/19 02:53 Temperature 98.2 F Pulse Rate 82 Respiratory 14 Rate Blood Pressure 158/88 O2 Sat by Pulse 98 Oximetry ED Medical Decision Making - Lab Data Result diagrams: 02/27/19 03:21 02/27/19 03:21 Lab Results 02/27/19 02/27/19 02/27/19 Range/Units 03:13 03:13 03:21 WBC (4.5-11.0) K/mm3 RBC (3.65-5.03) M/mm3 Hgb (11.8-15.2) gm/dl Hct (35.5-45.6) % MCV (84-94) fl MCH (28-32) pg MCHC (32-34) % RDW (13.2-15.2) % Plt Count (140-440) K/mm3 Lymph % (Auto) (13.4-35.0) % [place] % (Auto) (0.0-7.3) % Eos % (Auto) (0.0-4.3) % Baso % (Auto) (0.0-1.8) % Lymph # (1.2-5.4) K/mm3 [place] # (0.0-0.8) K/mm3 Eos # (0.0-0.4) K/mm3 Baso # (0.0-0.1) K/mm3 Seg Neutrophils % (40.0-70.0) % Seg Neutrophils # (1.8-7.7) K/mm3 POC ABG pH (7.35-7.45) POC ABG pCO2 (35-45) POC ABG pO2 (80-105) POC ABG HCO3 (22-26 mml/L) POC ABG Total CO2 (23-27mmol/L) POC ABG O2 Sat POC ABG Base Excess ((-2) - (+3)mmol/L) FiO2 % Sodium (137-145) mmol/L Potassium (3.6-5.0) mmol/L Chloride (98-107) mmol/L Carbon Dioxide (22-30) mmol/L Anion Gap mmol/L BUN (9-20) mg/dL Creatinine (0.8-1.5) mg/dL Estimated GFR ml/min BUN/Creatinine Ratio % Glucose (75-100) mg/dL Calcium (8.4-10.2) mg/dL Magnesium (1.7-2.3) mg/dL Urine Color Yellow (Yellow) Urine Turbidity Clear (Clear) Urine pH 5.0 (5.0-7.0) Ur Specific [place] 1.017 (1.003-1.030) Urine Protein <15 mg/dl (Negative) mg/dL Urine Glucose (UA) Neg (Negative) mg/dL Urine Ketones Neg (Negative) mg/dL Urine Blood Neg (Negative) Urine Nitrite Neg (Negative) Urine Bilirubin Neg (Negative) Urine Urobilinogen 2.0 (<2.0) mg/dL Ur Leukocyte Esterase Neg (Negative) Urine WBC (Auto) 1.0 (0.0-6.0) /HPF Urine RBC (Auto) 2.0 (0.0-6.0) /HPF U Epithel Cells (Auto) < 1.0 (0-13.0) /HPF Urine Mucus Few /HPF Salicylates < 0.3 L (2.8-20.0) mg/dL Urine Opiates Screen Presumptive negative Urine Methadone Screen Presumptive negative Acetaminophen (10.0-30.0) ug/mL Ur Barbiturates Screen Presumptive negative Ur Phencyclidine Scrn Presumptive negative Ur Amphetamines Screen Presumptive negative U Benzodiazepines Scrn Presumptive negative Urine Cocaine Screen Presumptive negative U Marijuana (THC) Screen Presumptive negative Drugs of Abuse Note Disclamer Plasma/Serum Alcohol (0-0.07) % 02/27/19 02/27/19 02/27/19 Range/Units 03:21 03:21 03:21 WBC (4.5-11.0) K/mm3 RBC (3.65-5.03) M/mm3 Hgb (11.8-15.2) gm/dl Hct (35.5-45.6) % MCV (84-94) fl MCH (28-32) pg MCHC (32-34) % RDW (13.2-15.2) % Plt Count (140-440) K/mm3 Lymph % (Auto) (13.4-35.0) % [place] % (Auto) (0.0-7.3) % Eos % (Auto) (0.0-4.3) % Baso % (Auto) (0.0-1.8) % Lymph # (1.2-5.4) K/mm3 [place] # (0.0-0.8) K/mm3 Eos # (0.0-0.4) K/mm3 Baso # (0.0-0.1) K/mm3 Seg Neutrophils % (40.0-70.0) % Seg Neutrophils # (1.8-7.7) K/mm3 POC ABG pH (7.35-7.45) POC ABG pCO2 (35-45) POC ABG pO2 (80-105) POC ABG HCO3 (22-26 mml/L) POC ABG Total CO2 (23-27mmol/L) POC ABG O2 Sat POC ABG Base Excess ((-2) - (+3)mmol/L) FiO2 % Sodium 132 L (137-145) mmol/L Potassium 2.8 L* (3.6-5.0) mmol/L Chloride 84.1 L (98-107) mmol/L Carbon Dioxide 36 H (22-30) mmol/L Anion Gap 15 mmol/L BUN 14 (9-20) mg/dL Creatinine 1.0 (0.8-1.5) mg/dL Estimated GFR > 60 ml/min BUN/Creatinine Ratio 14 % Glucose 216 H (75-100) mg/dL Calcium 9.3 (8.4-10.2) mg/dL Magnesium (1.7-2.3) mg/dL Urine Color (Yellow) Urine Turbidity (Clear) Urine pH (5.0-7.0) Ur Specific [place] (1.003-1.030) Urine Protein (Negative) mg/dL Urine Glucose (UA) (Negative) mg/dL Urine Ketones (Negative) mg/dL Urine Blood (Negative) Urine Nitrite (Negative) Urine Bilirubin (Negative) Urine Urobilinogen (<2.0) mg/dL Ur Leukocyte Esterase (Negative) Urine WBC (Auto) (0.0-6.0) /HPF Urine RBC (Auto) (0.0-6.0) /HPF U Epithel Cells (Auto) (0-13.0) /HPF Urine Mucus /HPF Salicylates (2.8-20.0) mg/dL Urine Opiates Screen Urine Methadone Screen Acetaminophen < 5.0 L (10.0-30.0) ug/mL Ur Barbiturates Screen Ur Phencyclidine Scrn Ur Amphetamines Screen U Benzodiazepines Scrn Urine Cocaine Screen U Marijuana (THC) Screen Drugs of Abuse Note Plasma/Serum Alcohol < 0.01 (0-0.07) % 08/16/19 08/16/19 08/16/19 Range/Units 03:21 03:21 05:04 WBC 14.6 H (4.5-11.0) K/mm3 RBC 5.10 H (3.65-5.03) M/mm3 Hgb 15.1 (11.8-15.2) gm/dl Hct 44.4 (35.5-45.6) % MCV 87 (84-94) fl MCH 30 (28-32) pg MCHC 34 (32-34) % RDW 13.6 (13.2-15.2) % Plt Count 316 (140-440) K/mm3 Lymph % (Auto) 23.1 (13.4-35.0) % [place] % (Auto) 7.3 (0.0-7.3) % Eos % (Auto) 2.8 (0.0-4.3) % Baso % (Auto) 0.6 (0.0-1.8) % Lymph # 3.4 (1.2-5.4) K/mm3 [place] # 1.1 H (0.0-0.8) K/mm3 Eos # 0.4 (0.0-0.4) K/mm3 Baso # 0.1 (0.0-0.1) K/mm3 Seg Neutrophils % 66.2 (40.0-70.0) % Seg Neutrophils # 9.6 H (1.8-7.7) K/mm3 POC ABG pH 7.432 (7.35-7.45) POC ABG pCO2 52.3 H (35-45) POC ABG pO2 63 L (80-105) POC ABG HCO3 34.9 (22-26 mml/L) POC ABG Total CO2 36 (23-27mmol/L) POC ABG O2 Sat 92 POC ABG Base Excess 11 ((-2) - (+3)mmol/L) FiO2 21 % Sodium (137-145) mmol/L Potassium (3.6-5.0) mmol/L Chloride (98-107) mmol/L Carbon Dioxide (22-30) mmol/L Anion Gap mmol/L BUN (9-20) mg/dL Creatinine (0.8-1.5) mg/dL Estimated GFR ml/min BUN/Creatinine Ratio % Glucose (75-100) mg/dL Calcium (8.4-10.2) mg/dL Magnesium 2.20 (1.7-2.3) mg/dL Urine Color (Yellow) Urine Turbidity (Clear) Urine pH (5.0-7.0) Ur Specific [place] (1.003-1.030) Urine Protein (Negative) mg/dL Urine Glucose (UA) (Negative) mg/dL Urine Ketones (Negative) mg/dL Urine Blood (Negative) Urine Nitrite (Negative) Urine Bilirubin (Negative) Urine Urobilinogen (<2.0) mg/dL Ur Leukocyte Esterase (Negative) Urine WBC (Auto) (0.0-6.0) /HPF Urine RBC (Auto) (0.0-6.0) /HPF U Epithel Cells (Auto) (0-13.0) /HPF Urine Mucus /HPF Salicylates (2.8-20.0) mg/dL Urine Opiates Screen Urine Methadone Screen Acetaminophen (10.0-30.0) ug/mL Ur Barbiturates Screen Ur Phencyclidine Scrn Ur Amphetamines Screen U Benzodiazepines Scrn Urine Cocaine Screen U Marijuana (THC) Screen Drugs of Abuse Note Plasma/Serum Alcohol (0-0.07) % - Medical Decision Making Patient is extremely drowsy with history of sleep apnea. ABG obtained via dylan ent is a chronic CO2 retainer with normal pH and based on ABG he does not need emergent BiPAP or supplemental oxygen. She does have a history of sleep apnea. Hypokalemia and noted it was the supplemented with repeat dose ordered at noon. He is medically cleared for inpatient psychiatric admission. At this time he does not meet 1013 criteria due to lack of suicidal or homicidal ideation. Mental health evaluation requested IV normal saline ordered For mild hyponatremia/hypochloremia - Differential Diagnosis ecchymosis, suicidal, homicidal, medication Critical Care Time: No Critical care attestation.: If time is entered above; I have spent that time in minutes in the direct care of this critically ill patient, excluding procedure time. ED Disposition Clinical Impression: Schizophrenia, Sleep apnea, Psychosis, Noncompliance with medication regimen, Hypokalemia, Medical clearance for psychiatric admission Disposition: DC/TX-70 ANOTHER TYPE HLTHCARE Is pt being admited?: No Condition: Stable Time of Disposition: 06:02
[2019-02-27] MEDS ORDERED: NACL 0.9% 1000 ML 1,000 ML IV ONE (05:59)
--- NOTE | 2019-02-27 11:29 | Consultation ---
History of Present Illness - Reason for Consult Consult date: 02/27/19 Reason for consult: Mental Health Evaluation Requesting physician: KULDEEP ALVA - Chief Complaint Chief complaint: 'I need my medications and help" - History of Present Psychiatric Illness 33-year-old AA male who presented to the ER for AH's. This patient is known to me. Today the patient was lethargic during the assessment. He had to be awaken several times to complete the assessment. He has a hx of sleep apnea. He stated that he was hearing voices the past 2 days, but denies that the voices are giving him any commands to act unsafe when asked. He stated that he haven't received his Invega injection in 2 months. He stated that he would like to be "stabilized." He stated that he "maybe homeless." He denies SI/HI's and VH's. He stated that the voices are decreasing. He denies recreational drug use and alcohol consumption (etoh). Medications and Allergies Allergies Allergy/AdvReac Type Severity Reaction Status Date / Time No Known Allergies Allergy Verified 02/20/19 17:06 Home Medications Medication Instructions Recorded Confirmed Last Taken Type No Known Home Medications [No 04/16/16 12/15/18 Unknown History Reported Home Medications] Active Meds: Active Medications Potassium Chloride (K-Dur) 40 meq PO ONCE ONE Stop: 02/27/19 12:01 Past psychiatric history - Past Medical History Past Medical History: other (Sleep Apnea) Past Surgical History: No surgical history - past Psychiatric treatment and history psychiatric treatment history: Several inpatient psy settings. Denies a fam psy hx. - Social History Social history: other (Reside at a skilled nursing) Mental Status Exam - Vital signs Last Vital Signs Temp 97.6 F 02/27/19 07:35 Pulse 102 H 02/27/19 07:35 Resp 22 02/27/19 07:35 BP 136/91 02/27/19 07:35 Pulse Ox 98 02/27/19 07:35 - Exam Narrative exam: MSE: Appearance: calm, cooperative Behavior: regular eye contact Speech: regular rate and tone Mood:: "okay" Affect: congruent to mood Thought Process: circumstantial Thought Content: denies SI/HI's and VH's, intermittent AH's Motor Activity: ambulatory Cognition: A/O x3 Insight: fair Judgment: fair Results Result Diagrams: 02/27/19 03:21 02/27/19 03:21 Abnormal lab results 02/27/19 02/27/19 02/27/19 Range/Units 03:21 03:21 03:21 WBC (4.5-11.0) K/mm3 RBC (3.65-5.03) M/mm3 [place] # (0.0-0.8) K/mm3 Seg Neutrophils # (1.8-7.7) K/mm3 POC ABG pCO2 (35-45) POC ABG pO2 (80-105) Sodium 132 L (137-145) mmol/L Potassium 2.8 L* (3.6-5.0) mmol/L Chloride 84.1 L (98-107) mmol/L Carbon Dioxide 36 H (22-30) mmol/L Glucose 216 H (75-100) mg/dL Salicylates < 0.3 L (2.8-20.0) mg/dL Acetaminophen < 5.0 L (10.0-30.0) ug/mL 02/27/19 02/27/19 Range/Units 03:21 05:04 WBC 14.6 H (4.5-11.0) K/mm3 RBC 5.10 H (3.65-5.03) M/mm3 [place] # 1.1 H (0.0-0.8) K/mm3 Seg Neutrophils # 9.6 H (1.8-7.7) K/mm3 POC ABG pCO2 52.3 H (35-45) POC ABG pO2 63 L (80-105) Sodium (137-145) mmol/L Potassium (3.6-5.0) mmol/L Chloride (98-107) mmol/L Carbon Dioxide (22-30) mmol/L Glucose (75-100) mg/dL Salicylates (2.8-20.0) mg/dL Acetaminophen (10.0-30.0) ug/mL All other labs normal. Assessment and Plan Assessment and plan: Impression: Hx of Psychotic/Mood DO. Today the patient was calm and cooperative during the assessment. K 2.8. Recommendation/Plan: Start home medication Invega 3 mg PO daily for mo od/psychosis. Discussed possible metabolic side effects of Invega with the patent, he verbalized understanding. Dispo: The patient was referred to [facility]. (voluntary program). Staffed with Dr. Ethan Billings.
[2019-02-27] MEDS ORDERED: INVEGA PO SCH (12:00)
[2019-02-28 09:19] VITALS: BP 132/92
== END 2019-02-28 09:25 | disposition other institution (70) ==
LOC: ED 02:46 → EEVIPCON 02:46 → ED 02-28 09:25
DX: F20.9 Schizophrenia, unspecified (principal); G47.30 Sleep apnea, unspecified; F29 Unspecified psychosis not due to a substance or known physiological condition; Z91.14 Patient's other noncompliance with medication regimen; E87.6 Hypokalemia; I10 Essential (primary) hypertension
CPT/HCPCS: 36415; 80048; 80307; 81001; 82803; 83735; 84132; 85025; 99284; J7030; 80320; 99285; G0480

== ENCOUNTER 2019-08-12 05:12 | Emergency (ER) | payer MEDICARE ==
[2019-08-12 05:55] LABS: Bilirubin,Urine NEG (Negative); Blood,Urine NEG (Negative); Color,Urine Yellow (Yellow); Mucus,Urine FEW /HPF; Protein,Urine <15 mg/dL mg/dL (Negative); Urobilinogen,Urine < 2.0 mg/dL (<2.0); WBC,Urine < 1.0 /HPF (0.0-6.0)
[2019-08-12 06:03] LABS: Amphetamine Screen,Urine PRESUMPTIVE NEGATIVE; Benzodiazepines Screen,Urine PRESUMPTIVE NEGATIVE; Cannabinoid Screen,Urine PRESUMPTIVE NEGATIVE; Cocaine Screen,Urine PRESUMPTIVE NEGATIVE; Methadone Screen,Urine PRESUMPTIVE NEGATIVE; Opiate Screen,Urine PRESUMPTIVE NEGATIVE
[2019-08-12 06:03] LABS: Basophils # (Auto) 0.1 K/mm3 (0.0-0.1); Basophils % (Auto) 0.6 % (0.0-1.8); Eosinophils # (Auto) 0.3 K/mm3 (0.0-0.4); Eosinophils % (Auto) 2.9 % (0.0-4.3); Hematocrit 43.6 % (35.5-45.6); Hemoglobin 14.2 gm/dl (11.8-15.2); Lymphocytes # (Auto) 2.5 K/mm3 (1.2-5.4); Lymphocytes % (Auto) 24.6 % (13.4-35.0); Mean Corpuscular HGB Conc 33 % (32-34); Mean Corpuscular Volume 87 fl (84-94); Monocytes # (Auto) 0.5 K/mm3 (0.0-0.8); Monocytes % (Auto) 5.3 % (0.0-7.3); Platelet Count 329 K/mm3 (140-440); Red Blood Count 5.03 M/mm3 (3.65-5.03); Red Cell Distribution Width 14.4 % (13.2-15.2)
[2019-08-12 06:21] LABS: BUN/Creatinine Ratio 10; Blood Urea Nitrogen 8 mg/dL (9-20); Calcium 9.3 mg/dL (8.4-10.2); Hemolysis Index 11
[2019-08-12] MEDS ORDERED: ZIPRASIDONE 20 MG CAP PO SCH (10:00)
--- NOTE | 2019-08-12 15:53 | Emergency Department Report ---
<VARINDERCARMINA RUFFIN Rashid - Last Filed: 08/12/19 15:48> ED Psych HPI - General Chief Complaint: Psych Stated Complaint: MP COSTELLO Time Seen by Provider: 08/12/19 06:47 Source: patient Mode of arrival: Ambulatory - History of Present Illness Initial Comments: 34-year-old male states that he may have missed some of his doses of psychiatric medication. He states he is living at a "fund accountant's house". He states he needs to go somewhere else. He states he's had voices tell him to hurt himself. He isn't anymore specific about this. He has chronic auditory hallucinosis and a history of schizophrenia. He is not suicidal at the time of my evaluation. He was not agitated nor obviously hallucinating. MD Complaint: other -: Gradual Associated Psychiatric Symptoms: none History of same: Yes Quality: intermittent Improves With: none Worsens With: none Context: not taking psychiatric Associated Symptoms: denies other symptoms Treatments Prior to Arrival: none If Self Harm: admits thoughts of - Related Data Home Medications Medication Instructions Recorded Confirmed Last Taken diphenhydrAMINE [Benadryl CAP] 50 mg PO QHS 03/26/19 03/26/19 Unknown Previous Rx's Medication Instructions Recorded Last Taken Type haloperidoL [Haldol] 5 mg PO QHS #20 tablet 03/30/19 Unknown Rx Allergies Allergy/AdvReac Type Severity Reaction Status Date / Time No Known Allergies Allergy Verified 02/20/19 17:06 ED Review of Systems Constitutional: denies: chills, fever Eyes: denies: eye pain, eye discharge, vision change ENT: denies: ear pain, throat pain Respiratory: denies: cough, shortness of breath Cardiovascular: denies: chest pain, palpitations Endocrine: no symptoms reported Gastrointestinal: denies: abdominal pain, nausea, diarrhea Genitourinary: denies: urgency, dysuria Musculoskeletal: denies: back pain, joint swelling, arthralgia Skin: denies: rash, lesions Neurological: denies: headache, weakness, paresthesias Psychiatric: as per HPI, auditory hallucinations (command hallucinations). denies: anxiety, depression Hematological/Lymphatic: denies: easy bleeding, easy bruising ED Past Medical Hx - Past Medical History Previous Medical History?: Yes Hx Hypertension: Yes Hx Congestive Heart Failure: No Hx Diabetes: Yes Hx Psychiatric Treatment: Yes (bipolar schizo) Hx Asthma: No Hx COPD: No Additional medical history: Sleep apnea - Surgical History Past Surgical History?: No - Social History Smoking Status: Current Every Day Smoker Substance Use Type: None - Medications Home Medications: Home Medications Medication Instructions Recorded Confirmed Last Taken Type diphenhydrAMINE [Benadryl CAP] 50 mg PO QHS 03/26/19 03/26/19 Unknown History haloperidoL [Haldol] 5 mg PO QHS #20 tablet 03/30/19 Unknown Rx ED Physical Exam - General Limitations: No Limitations General appearance: alert, in no apparent distress - Head Head exam: Present: atraumatic, normocephalic - Eye Eye exam: Present: normal appearance. Absent: scleral icterus - ENT ENT exam: Present: mucous membranes moist - Neck Neck exam: Present: normal inspection - Respiratory Respiratory exam: Present: normal lung sounds bilaterally. Absent: respiratory distress - Cardiovascular Cardiovascular Exam: Present: regular rate, normal rhythm. Absent: systolic murmur, diastolic murmur, rubs, gallop - GI/Abdominal GI/Abdominal exam: Present: soft, normal bowel sounds. Absent: distended, ten derness, guarding, rebound, rigid - Rectal Rectal exam: Present: deferred - Extremities Exam Extremities exam: Present: normal inspection - Back Exam Back exam: Present: normal inspection - Neurological Exam Neurological exam: Present: alert, oriented X3, CN II-XII intact. Absent: motor sensory deficit - Psychiatric Psychiatric exam: Present: normal mood, flat affect - Skin Skin exam: Present: warm, dry, intact, normal color. Absent: rash ED Course - Reevaluation(s) Reevaluation #1: Still awaiting psychiatric assessment. The patient is medically clear for placement. I'm not a daily attempt 13 at this juncture as the patient's problems seem more slanted to social issues versus secondary gain. 08/12/19 15:52 ED Medical Decision Making - Lab Data Result diagrams: 08/12/19 05:34 08/12/19 05:34 Laboratory Results - last 24 hr 08/12/19 08/12/19 08/12/19 05:34 05:34 05:34 WBC RBC Hgb Hct MCV MCH MCHC RDW Plt Count Lymph % (Auto) [place] % (Auto) Eos % (Auto) Baso % (Auto) Lymph # [place] # Eos # Baso # Seg Neutrophils % Seg Neutrophils # Sodium 139 Potassium 4.1 Chloride 102.7 Carbon Dioxide 23 Anion Gap 17 BUN 8 L Creatinine 0.8 Estimated GFR > 60 BUN/Creatinine Ratio 10 Glucose 107 H Calcium 9.3 Urine Color Urine Turbidity Urine pH Ur Specific [place] Urine Protein Urine Glucose (UA) Urine Ketones Urine Blood Urine Nitrite Urine Bilirubin Urine Urobilinogen Ur Leukocyte Esterase Urine WBC (Auto) Urine RBC (Auto) Urine Mucus Salicylates < 0.3 L Urine Opiates Screen Urine Methadone Screen Acetaminophen < 5.0 L Ur Barbiturates Screen Ur Phencyclidine Scrn Ur Amphetamines Screen U Benzodiazepines Scrn Urine Cocaine Screen U Marijuana (THC) Screen Drugs of Abuse Note Plasma/Serum Alcohol 08/12/19 08/12/19 08/12/19 05:34 05:34 05:40 WBC 10.1 RBC 5.03 Hgb 14.2 Hct 43.6 MCV 87 MCH 28 MCHC 33 RDW 14.4 Plt Count 329 Lymph % (Auto) 24.6 [place] % (Auto) 5.3 Eos % (Auto) 2.9 Baso % (Auto) 0.6 Lymph # 2.5 [place] # 0.5 Eos # 0.3 Baso # 0.1 Seg Neutrophils % 66.6 Seg Neutrophils # 6.8 Sodium Potassium Chloride Carbon Dioxide Anion Gap BUN Creatinine Estimated GFR BUN/Creatinine Ratio Glucose Calcium Urine Color Yellow Urine Turbidity Clear Urine pH 6.0 Ur Specific [place] 1.010 Urine Protein <15 mg/dl Urine Glucose (UA) Neg Urine Ketones Neg Urine Blood Neg Urine Nitrite Neg Urine Bilirubin Neg Urine Urobilinogen < 2.0 Ur Leukocyte Esterase Neg Urine WBC (Auto) < 1.0 Urine RBC (Auto) 2.0 Urine Mucus Few Salicylates Urine Opiates Screen Urine Methadone Screen Acetaminophen Ur Barbiturates Screen Ur Phencyclidine Scrn Ur Amphetamines Screen U Benzodiazepines Scrn Urine Cocaine Screen U Marijuana (THC) Screen Drugs of Abuse Note Plasma/Serum Alcohol < 0.01 08/12/19 05:40 WBC RBC Hgb Hct MCV MCH MCHC RDW Plt Count Lymph % (Auto) [place] % (Auto) Eos % (Auto) Baso % (Auto) Lymph # [place] # Eos # Baso # Seg Neutrophils % Seg Neutrophils # Sodium Potassium Chloride Carbon Dioxide Anion Gap BUN Creatinine Estimated GFR BUN/Creatinine Ratio Glucose Calcium Urine Color Urine Turbidity Urine pH Ur Specific [place] Urine Protein Urine Glucose (UA) Urine Ketones Urine Blood Urine Nitrite Urine Bilirubin Urine Urobilinogen Ur Leukocyte Esterase Urine WBC (Auto) Urine RBC (Auto) Urine Mucus Salicylates Urine Opiates Screen Presumptive negative Urine Methadone Screen Presumptive negative Acetaminophen Ur Barbiturates Screen Presumptive negative Ur Phencyclidine Scrn Presumptive negative Ur Amphetamines Screen Presumptive negative U Benzodiazepines Scrn Presumptive negative Urine Cocaine Screen Presumptive negative U Marijuana (THC) Screen Presumptive negative Drugs of Abuse Note Disclamer Plasma/Serum Alcohol ED Disposition Clinical Impression: Schizophrenia Qualifiers: Schizophrenia type: other Qualified Code(s): F20.89 - Other schizophrenia Disposition: DC-01 TO HOME OR SELFCARE Is pt being admited?: No Does the pt Need Aspirin: No Condition: Stable Instructions: Schizophrenia (ED) Additional Instructions: return if worse Referrals: PRIMARY CARE, [Primary Care Provider] - 3-5 Days [facility] [Outside] - 3-5 Days Time of Disposition: 15:54 <WILLIAN FLYNN - Last Filed: 08/12/19 20:22> ED Review of Systems ROS: Stated complaint: MH EVAL Other details as noted in HPI ED Course Vital Signs 08/12/19 08/12/19 08/12/19 05:13 07:52 14:39 Temperature 98.2 F 98.6 F 98.1 F Pulse Rate 101 H 88 92 H Respiratory 18 20 22 Rate Blood Pressure 150/85 Blood Pressure 124/73 137/95 [Left] O2 Sat by Pulse 96 100 96 Oximetry 08/12/19 14:52 Temperature 98.1 F Pulse Rate 92 H Respiratory 22 Rate Blood Pressure Blood Pressure 137/95 [Left] O2 Sat by Pulse 96 Oximetry ED Medical Decision Making - Lab Data Result diagrams: 08/12/19 05:34 08/12/19 05:34 Critical care attestation.: If time is entered above; I have spent that time in minutes in the direct care of this critically ill patient, excluding procedure time. ED Disposition Is pt being admited?: No Does the pt Need Aspirin: No
[2019-08-12 21:04] VITALS: BP 115/85
== END 2019-08-12 21:00 | disposition home or self-care (01) ==
LOC: ED 05:12
DX: F20.9 Schizophrenia, unspecified (principal); I10 Essential (primary) hypertension; E11.9 Type 2 diabetes mellitus without complications; F31.9 Bipolar disorder, unspecified; F17.200 Nicotine dependence, unspecified, uncomplicated; Z79.899 Other long term (current) drug therapy
CPT/HCPCS: 36415; 80048; 80307; 80320; 81001; 85025; G0480

== ENCOUNTER 2019-09-13 23:17 | Emergency (ER) | payer MEDICARE ==
[2019-09-14] MEDS ORDERED: HALOPERIDOL LACTATE 5 MG/1 ML INJ IM PRN (00:05)
[2019-09-14] MEDS ORDERED: ALPRAZolam 0.5 MG TAB PO PRN (00:06)
--- NOTE | 2019-09-14 00:07 | Emergency Department Report ---
ED General Adult HPI - General Chief complaint: Psych Stated complaint: MH EVAL Time Seen by Provider: 09/13/19 23:43 Source: patient, EMS ( EMS documentation not available at time of chart dictation ), RN notes reviewed Mode of arrival: Ambulatory Limitations: Other (Patient slightly disorganized) - History of Present Illness Initial comments: This is a 34-year-old obese gentleman. He may have a history of sleep apnea, but has not had a formal sleep study and does not have a CPAP or BiPAP. He has been evaluated by myself in the past. He also reportedly has a history of bipolar and schizophrenia. He presents to the hospital with emergency medical services. The patient indicates that he is having hallucinations and hearing voices, and that he is having difficulty sleeping. He has a mild headache, which is not described as sudden or thunderclap in nature. The headache is chronic. The patient states that he cannot stay where he is currently living, he wants a list of places to go. He indicates that he does not want to sleep on the streets, and he does not want to live in a chcf. He denies homicidality, suicidality, urinary symptoms, and additional physical pain. He is feeling somewhat anxious. -: Gradual Severity scale (0 -10): 0 Improves with: none Worsens with: none - Related Data Home Medications Medication Instructions Recorded Confirmed Last Taken diphenhydrAMINE [Benadryl CAP] 50 mg PO QHS 03/26/19 09/14/19 Unknown Previous Rx's Medication Instructions Recorded Last Taken Type haloperidoL [Haldol] 5 mg PO QHS #20 tablet 03/30/19 Unknown Rx Allergies Allergy/AdvReac Type Severity Reaction Status Date / Time No Known Allergies Allergy Verified 02/20/19 17:06 ED Review of Systems ROS: Stated complaint: MH EVAL Other details as noted in HPI Constitutional: denies: fever Eyes: denies: eye discharge ENT: denies: congestion Respiratory: denies: wheezing Cardiovascular: denies: syncope Gastrointestinal: denies: abdominal pain Neurological: headache Psychiatric: anxiety, auditory hallucinations. denies: homicidal thoughts, suicidal thoughts ED Past Medical Hx - Past Medical History Previous Medical History?: Yes Hx Hypertension: Yes Hx Congestive Heart Failure: No Hx Diabetes: Yes Hx Psychiatric Treatment: Yes (bipolar schizo) Hx Asthma: No Hx COPD: No Additional medical history: Sleep apnea - Surgical History Past Surgical History?: Yes Additional Surgical History: unale to obtain - Social History Smoking Status: Current Every Day Smoker - Medications Home Medications: Home Medications Medication Instructions Recorded Confirmed Last Taken Type diphenhydrAMINE [Benadryl CAP] 50 mg PO QHS 03/26/19 09/14/19 Unknown History haloperidoL [Haldol] 5 mg PO QHS #20 tablet 03/30/19 09/14/19 Unknown Rx ED Physical Exam - General Limitations: Altered Mental Status, Other (Patient is slightly disorganized) General appearance: alert, anxious, obese - Head Head exam: Present: atraumatic, normocephalic - Eye Eye exam: Present: normal appearance, EOMI, other (Visual acuity intact to finger counting and color perception at a close distance). Absent: nystagmus - ENT ENT exam: Present: normal exam, normal orophraynx, mucous membranes moist, no rmal external ear exam - Neck Neck exam: Present: normal inspection, full ROM. Absent: tenderness, meningismus - Respiratory Respiratory exam: Present: normal lung sounds bilaterally. Absent: respiratory distress - Cardiovascular Cardiovascular Exam: Present: regular rate, normal rhythm, normal heart sounds. Absent: bradycardia, tachycardia, irregular rhythm, systolic murmur, diastolic murmur, rubs, gallop - GI/Abdominal GI/Abdominal exam: Present: soft, normal bowel sounds. Absent: distended, tenderness, guarding, rebound, rigid - Rectal Rectal exam: Present: deferred - Extremities Exam Extremities exam: Present: normal inspection, full ROM, other (2+ pulses noted in the bilateral upper and lower extremities. There is no palpable cord. negative Homans sign. Muscular compartments are soft. The pelvis is stable.). Absent: pedal edema, calf tenderness - Back Exam Back exam: Present: normal inspection. Absent: tenderness, CVA tenderness (R), CVA tenderness (L), paraspinal tenderness, vertebral tenderness - Neurological Exam Neurological exam: Present: alert, oriented X3 (Patient is alert to name, month, year and location), normal gait, other (There is no facial droop. The tongue is midline. Extraocular movements are intact bilaterally. There is 5 out of 5 strength in bilateral upper and lower extremities. Sensation is intact to light touch bilateral upper and lower extremities. There is a normal gait.). Absent: motor sensory deficit - Psychiatric Psychiatric exam: Present: agitated, anxious. Absent: homicidal ideation, suicidal ideation - Skin Skin exam: Present: warm, dry, intact, normal color. Absent: rash ED Course Vital Signs 09/13/19 09/14/19 09/14/19 23:52 08:45 14:32 Temperature 98.5 F 97.3 F L 97.3 F L Pulse Rate 91 H 94 H 94 H Respiratory 18 18 18 Rate Blood Pressure 111/54 137/82 Blood Pressure 111/54 111/54 [Left] O2 Sat by Pulse 95 96 96 Oximetry - Reevaluation(s) Reevaluation #1: 09/14/19 01:27 Differential diagnosis, including but not limited to: Disorganized behavior, mood disorder, secondary gain, malingering, psychosis Assessment and plan: 34-year-old gentleman who presents with a complaint of hearing voices, not wanting to live where he currently lives, who also demonstrates impressive insight and saying that he does not want to live on the streets, and he does not want to go live in a chcf. He is a little bit agitated, but he was able to be de-escalated with verbal techniques. When I examined him, he is calm and cooperative, he is not overly aggressive, he is not homicidal, he is not suicidal, and he participates willingly in his physical examination. He did want to speak to case management and psychiatry, so these requests have been made. Patient has presented after hours, so both case management and psychiatry are not available at this time. PRN medications have been ordered. At the moment, the patient does not meet criteria for 1013/psychiatric involuntary hold. 09/14/19 01:28 His laboratory studies are unremarkable and his physical examination is unremarkable. At the moment, the patient does not appear to have an immediate medical contraindication/barriers to psychiatric evaluation, and placement. I anticipate that he will be given outpatient resources, and if so, he is medically suitable to be discharged. ED Medical Decision Making - Lab Data Result diagrams: 09/14/19 00:14 09/14/19 00:14 Vital Signs 09/13/19 23:52 Temperature 98.5 F Pulse Rate 91 H Respiratory 18 Rate Blood Pressure 111/54 Blood Pressure 111/54 [Left] O2 Sat by Pulse 95 Oximetry Lab Results 09/14/19 09/14/19 09/14/19 Range/Units 00:14 00:14 00:14 WBC 11.9 H (4.5-11.0) K/mm3 RBC 5.22 H (3.65-5.03) M/mm3 Hgb 14.5 (11.8-15.2) gm/dl Hct 43.7 (35.5-45.6) % MCV 84 (84-94) fl MCH 28 (28-32) pg MCHC 33 (32-34) % RDW 15.1 (13.2-15.2) % Plt Count 313 (140-440) K/mm3 Sodium 137 (137-145) mmol/L Potassium 4.0 (3.6-5.0) mmol/L Chloride 99.2 (98-107) mmol/L Carbon Dioxide 26 (22-30) mmol/L Anion Gap 16 mmol/L BUN 11 (9-20) mg/dL Creatinine 0.9 (0.8-1.5) mg/dL Estimated GFR > 60 ml/min BUN/Creatinine Ratio 12 % Glucose 107 H (75-100) mg/dL Calcium 9.2 (8.4-10.2) mg/dL Total Bilirubin 0.20 (0.1-1.2) mg/dL AST 34 (5-40) units/L ALT 23 (7-56) units/L Alkaline Phosphatase 111 (35-129) units/L Total Creatine Kinase 576 H (55-170) units/L Total Protein 7.3 (6.3-8.2) g/dL Albumin 4.1 (3.9-5) g/dL Albumin/Globulin Ratio 1.3 % Salicylates < 0.3 L (2.8-20.0) mg/dL Acetaminophen (10.0-30.0) ug/mL Plasma/Serum Alcohol (0-0.07) % 09/14/19 09/14/19 Range/Units 00:14 00:14 WBC (4.5-11.0) K/mm3 RBC (3.65-5.03) M/mm3 Hgb (11.8-15.2) gm/dl Hct (35.5-45.6) % MCV (84-94) fl MCH (28-32) pg MCHC (32-34) % RDW (13.2-15.2) % Plt Count (140-440) K/mm3 Sodium (137-145) mmol/L Potassium (3.6-5.0) mmol/L Chloride (98-107) mmol/L Carbon Dioxide (22-30) mmol/L Anion Gap mmol/L BUN (9-20) mg/dL Creatinine (0.8-1.5) mg/dL Estimated GFR ml/min BUN/Creatinine Ratio % Glucose (75-100) mg/dL Calcium (8.4-10.2) mg/dL Total Bilirubin (0.1-1.2) mg/dL AST (5-40) units/L ALT (7-56) units/L Alkaline Phosphatase (35-129) units/L Total Creatine Kinase (55-170) units/L Total Protein (6.3-8.2) g/dL Albumin (3.9-5) g/dL Albumin/Globulin Ratio % Salicylates (2.8-20.0) mg/dL Acetaminophen < 5.0 L (10.0-30.0) ug/mL Plasma/Serum Alcohol < 0.01 (0-0.07) % Critical care attestation.: If time is entered above; I have spent that time in minutes in the direct care of this critically ill patient, excluding procedure time. ED Disposition Clinical Impression: Auditory hallucinations Disposition: DC-01 TO HOME OR SELFCARE Is pt being admited?: No Does the pt Need Aspirin: No Condition: Stable Instructions: Brief Psychotic Disorder (ED) Additional Instructions: Return if there are any thoughts of hurting yourself or others Referrals: [facility] [Outside] - 3-5 Days [place] SALLY GALINDO MD [Primary Care Provider] - 3-5 Days
[2019-09-14 00:57] LABS: Hematocrit 43.7 % (35.5-45.6); Hemoglobin 14.5 gm/dl (11.8-15.2); Mean Corpuscular HGB Conc 33 % (32-34); Mean Corpuscular Volume 84 fl (84-94); Platelet Count 313 K/mm3 (140-440); Red Blood Count 5.22 M/mm3 (3.65-5.03); Red Cell Distribution Width 15.1 % (13.2-15.2)
[2019-09-14 01:02] LABS: Alanine Aminotransferase 23 units/L (7-56); Albumin 4.1 g/dL (3.9-5); BUN/Creatinine Ratio 12; Blood Urea Nitrogen 11 mg/dL (9-20); Calcium 9.2 mg/dL (8.4-10.2); Hemolysis Index 10
--- NOTE | 2019-09-14 12:41 | Event Note ---
Date: 09/14/19 Patient examined by mental health and discussed with psychiatrist and the patient has been deemed not to be a threat to himself or others and will be discharged home.
[2019-09-14 14:33] VITALS: BP 111/54
== END 2019-09-14 14:33 | disposition home or self-care (01) ==
LOC: ED 23:17
DX: F25.0 Schizoaffective disorder, bipolar type (principal); I10 Essential (primary) hypertension; E11.9 Type 2 diabetes mellitus without complications; F17.200 Nicotine dependence, unspecified, uncomplicated; Z79.899 Other long term (current) drug therapy
CPT/HCPCS: 36415; 80053; 80320; 82550; 85027; G0480

== ENCOUNTER 2019-11-03 20:48 | Emergency (ER) | payer MEDICARE ==
[2019-11-03 21:53] LABS: Basophils # (Auto) 0.1 K/mm3 (0.0-0.1); Basophils % (Auto) 0.6 % (0.0-1.8); Eosinophils # (Auto) 0.2 K/mm3 (0.0-0.4); Eosinophils % (Auto) 1.6 % (0.0-4.3); Hematocrit 45.6 % (35.5-45.6); Hemoglobin 15.2 gm/dl (11.8-15.2); Lymphocytes % (Auto) 26.6 % (13.4-35.0); Mean Corpuscular HGB Conc 33 % (32-34); Mean Corpuscular Volume 86 fl (84-94); Monocytes # (Auto) 1.3 K/mm3 (0.0-0.8); Monocytes % (Auto) 8.7 % (0.0-7.3); Platelet Count 315 K/mm3 (140-440); Red Cell Distribution Width 16.3 % (13.2-15.2)
[2019-11-03 22:13] LABS: BUN/Creatinine Ratio 7; Blood Urea Nitrogen 8 mg/dL (9-20); Calcium 9.1 mg/dL (8.4-10.2); Hemolysis Index 23
[2019-11-03 22:47] LABS: Bilirubin,Urine NEG (Negative); Blood,Urine NEG (Negative); Color,Urine Yellow (Yellow); Mucus,Urine FEW /HPF
[2019-11-03 22:48] LABS: Amphetamine Screen,Urine PRESUMPTIVE NEGATIVE; Cannabinoid Screen,Urine PRESUMPTIVE NEGATIVE; Cocaine Screen,Urine PRESUMPTIVE NEGATIVE; Methadone Screen,Urine PRESUMPTIVE NEGATIVE; Opiate Screen,Urine PRESUMPTIVE NEGATIVE
[2019-11-03 23:04] LABS: Benzodiazepines Screen,Urine PRESUMPTIVE POSITIVE
--- NOTE | 2019-11-03 23:23 | Emergency Department Report ---
<ALEXI HALE - Last Filed: 11/03/19 23:10> ED Psych HPI - General Chief Complaint: Psych Stated Complaint: PSYCHOTIC EPISODE Time Seen by Provider: 11/03/19 21:15 Source: EMS Mode of arrival: Stretcher - History of Present Illness Initial Comments: Patient is a 34-year-old F [place]an male past medical history of schizophrenia who is presenting with aggressive behavior prior to arrival. Patient according to EMS was acting wildly and to have an exacerbation of his psychosis. He was is sedated prior to arrival. - Related Data Previous Rx's Medication Instructions Recorded Last Taken Type Ziprasidone [Geodon] 40 mg PO BID #60 capsule 10/23/19 Unknown Rx Allergies Allergy/AdvReac Type Severity Reaction Status Date / Time No Known Allergies Allergy Verified 02/20/19 17:06 ED Review of Systems Comment: Unobtainable due to pts medical conditions ED Past Medical Hx - Past Medical History Hx Hypertension: Yes Hx Congestive Heart Failure: No Hx Diabetes: Yes Hx Psychiatric Treatment: Yes (bipolar schizo) Hx Asthma: No Hx COPD: No Additional medical history: Sleep apnea - Surgical History Additional Surgical History: unale to obtain - Social History Smoking Status: Unknown if ever smoked - Medications Home Medications: Home Medications Medication Instructions Recorded Confirmed Last Taken Type Ziprasidone [Geodon] 40 mg PO BID #60 capsule 10/23/19 11/04/19 Unknown Rx ED Physical Exam - General Limitations: Other General appearance: in no apparent distress, lethargic - Head Head exam: Present: atraumatic, normocephalic - Eye Eye exam: Present: normal appearance, PERRL - ENT ENT exam: Present: mucous membranes moist - Neck Neck exam: Present: normal inspection - Respiratory Respiratory exam: Present: normal lung sounds bilaterally, other (Patient is asleep and snoring loudly). Absent: respiratory distress, wheezes, rales, rhonchi - Cardiovascular Cardiovascular Exam: Present: regular rate, normal rhythm. Absent: systolic mur mur, diastolic murmur, rubs, gallop - GI/Abdominal GI/Abdominal exam: Present: soft, normal bowel sounds. Absent: distended, guarding, rebound - Rectal Rectal exam: Present: deferred - Extremities Exam Extremities exam: Present: normal inspection - Back Exam Back exam: Present: normal inspection - Neurological Exam Neurological exam: Present: other (Patient asleep on arrival) - Psychiatric Psychiatric exam: Present: other (Unable to assess) - Skin Skin exam: Present: warm, dry, intact, normal color. Absent: rash ED Course - Reevaluation(s) Reevaluation #1: 11/03/19 23:51 Patient received 5 mg of Haldol and 5 mg of Versed prior to arrival. Patient w as unable to be assessed fully patient is medically cleared for mental health assessment after he wakes ED Medical Decision Making - Lab Data Result diagrams: 11/03/19 21:37 11/03/19 21:37 Lab Results 11/03/19 11/03/19 11/03/19 Range/Units 21:37 21:37 21:37 WBC 15.0 H (4.5-11.0) K/mm3 RBC 5.30 H (3.65-5.03) M/mm3 Hgb 15.2 (11.8-15.2) gm/dl Hct 45.6 (35.5-45.6) % MCV 86 (84-94) fl MCH 29 (28-32) pg MCHC 33 (32-34) % RDW 16.3 H (13.2-15.2) % Plt Count 315 (140-440) K/mm3 Lymph % (Auto) 26.6 (13.4-35.0) % Stearns % (Auto) 8.7 H (0.0-7.3) % Eos % (Auto) 1.6 (0.0-4.3) % Baso % (Auto) 0.6 (0.0-1.8) % Lymph # 4.0 (1.2-5.4) K/mm3 Stearns # 1.3 H (0.0-0.8) K/mm3 Eos # 0.2 (0.0-0.4) K/mm3 Baso # 0.1 (0.0-0.1) K/mm3 Seg Neutrophils % 62.5 (40.0-70.0) % Seg Neutrophils # 9.4 H (1.8-7.7) K/mm3 Sodium 135 L (137-145) mmol/L Potassium 4.2 (3.6-5.0) mmol/L Chloride 96.8 L (98-107) mmol/L Carbon Dioxide 25 (22-30) mmol/L Anion Gap 17 mmol/L BUN 8 L (9-20) mg/dL Creatinine 1.2 (0.8-1.5) mg/dL Estimated GFR > 60 ml/min BUN/Creatinine Ratio 7 % Glucose 78 (75-100) mg/dL Calcium 9.1 (8.4-10.2) mg/dL Urine Color (Yellow) Urine Turbidity (Clear) Urine pH (5.0-7.0) Ur Specific [place] (1.003-1.030) Urine Protein (Negative) mg/dL Urine Glucose (UA) (Negative) mg/dL Urine Ketones (Negative) mg/dL Urine Blood (Negative) Urine Nitrite (Negative) Urine Bilirubin (Negative) Urine Urobilinogen (<2.0) mg/dL Ur Leukocyte Esterase (Negative) Urine WBC (Auto) (0.0-6.0) /HPF Urine RBC (Auto) (0.0-6.0) /HPF Urine Mucus /HPF Salicylates < 0.3 L (2.8-20.0) mg/dL Urine Opiates Screen Urine Methadone Screen Acetaminophen (10.0-30.0) ug/mL Ur Barbiturates Screen Ur Phencyclidine Scrn Ur Amphetamines Screen U Benzodiazepines Scrn Urine Cocaine Screen U Marijuana (THC) Screen Drugs of Abuse Note Plasma/Serum Alcohol (0-0.07) % 11/03/19 11/03/19 11/03/19 Range/Units 21:37 21:37 22:30 WBC (4.5-11.0) K/mm3 RBC (3.65-5.03) M/mm3 Hgb (11.8-15.2) gm/dl Hct (35.5-45.6) % MCV (84-94) fl MCH (28-32) pg MCHC (32-34) % RDW (13.2-15.2) % Plt Count (140-440) K/mm3 Lymph % (Auto) (13.4-35.0) % Stearns % (Auto) (0.0-7.3) % Eos % (Auto) (0.0-4.3) % Baso % (Auto) (0.0-1.8) % Lymph # (1.2-5.4) K/mm3 Stearns # (0.0-0.8) K/mm3 Eos # (0.0-0.4) K/mm3 Baso # (0.0-0.1) K/mm3 Seg Neutrophils % (40.0-70.0) % Seg Neutrophils # (1.8-7.7) K/mm3 Sodium (137-145) mmol/L Potassium (3.6-5.0) mmol/L Chloride (98-107) mmol/L Carbon Dioxide (22-30) mmol/L Anion Gap mmol/L BUN (9-20) mg/dL Creatinine (0.8-1.5) mg/dL Estimated GFR ml/min BUN/Creatinine Ratio % Glucose (75-100) mg/dL Calcium (8.4-10.2) mg/dL Urine Color Yellow (Yellow) Urine Turbidity Clear (Clear) Urine pH 5.0 (5.0-7.0) Ur Specific [place] 1.031 H (1.003-1.030) Urine Protein 100 mg/dl (Negative) mg/dL Urine Glucose (UA) Neg (Negative) mg/dL Urine Ketones Neg (Negative) mg/dL Urine Blood Neg (Negative) Urine Nitrite Neg (Negative) Urine Bilirubin Neg (Negative) Urine Urobilinogen 2.0 (<2.0) mg/dL Ur Leukocyte Esterase Neg (Negative) Urine WBC (Auto) 2.0 (0.0-6.0) /HPF Urine RBC (Auto) 3.0 (0.0-6.0) /HPF Urine Mucus Few /HPF Salicylates (2.8-20.0) mg/dL Urine Opiates Screen Urine Methadone Screen Acetaminophen < 5.0 L (10.0-30.0) ug/mL Ur Barbiturates Screen Ur Phencyclidine Scrn Ur Amphetamines Screen U Benzodiazepines Scrn Urine Cocaine Screen U Marijuana (THC) Screen Drugs of Abuse Note Plasma/Serum Alcohol < 0.01 (0-0.07) % 11/03/19 Range/Units 22:30 WBC (4.5-11.0) K/mm3 RBC (3.65-5.03) M/mm3 Hgb (11.8-15.2) gm/dl Hct (35.5-45.6) % MCV (84-94) fl MCH (28-32) pg MCHC (32-34) % RDW (13.2-15.2) % Plt Count (140-440) K/mm3 Lymph % (Auto) (13.4-35.0) % Stearns % (Auto) (0.0-7.3) % Eos % (Auto) (0.0-4.3) % Baso % (Auto) (0.0-1.8) % Lymph # (1.2-5.4) K/mm3 Stearns # (0.0-0.8) K/mm3 Eos # (0.0-0.4) K/mm3 Baso # (0.0-0.1) K/mm3 Seg Neutrophils % (40.0-70.0) % Seg Neutrophils # (1.8-7.7) K/mm3 Sodium (137-145) mmol/L Potassium (3.6-5.0) mmol/L Chloride (98-107) mmol/L Carbon Dioxide (22-30) mmol/L Anion Gap mmol/L BUN (9-20) mg/dL Creatinine (0.8-1.5) mg/dL Estimated GFR ml/min BUN/Creatinine Ratio % Glucose (75-100) mg/dL Calcium (8.4-10.2) mg/dL Urine Color (Yellow) Urine Turbidity (Clear) Urine pH (5.0-7.0) Ur Specific [place] (1.003-1.030) Urine Protein (Negative) mg/dL Urine Glucose (UA) (Negative) mg/dL Urine Ketones (Negative) mg/dL Urine Blood (Negative) Urine Nitrite (Negative) Urine Bilirubin (Negative) Urine Urobilinogen (<2.0) mg/dL Ur Leukocyte Esterase (Negative) Urine WBC (Auto) (0.0-6.0) /HPF Urine RBC (Auto) (0.0-6.0) /HPF Urine Mucus /HPF Salicylates (2.8-20.0) mg/dL Urine Opiates Screen Presumptive negative Urine Methadone Screen Presumptive negative Acetaminophen (10.0-30.0) ug/mL Ur Barbiturates Screen Presumptive negative Ur Phencyclidine Scrn Presumptive negative Ur Amphetamines Screen Presumptive negative U Benzodiazepines Scrn Presumptive positive Urine Cocaine Screen Presumptive negative U Marijuana (THC) Screen Presumptive negative Drugs of Abuse Note Disclamer Plasma/Serum Alcohol (0-0.07) % ED Disposition Clinical Impression: Schizophrenia, Aggressive behavior Condition: Stable Instructions: Schizophrenia (ED), Suicide Prevention for Adults (ED) Additional Instructions: OUTPATIENT MENTAL HEALTH RESOURCES [facility], [facility] Luis Fernando Beaulieu MD: [address], [address] [place] [address] [place] [address] [facility]: [facility] [address] [place] [address] [place] [address] [phone] [facility]: [address] [place], [place] [id number] [phone] [facility]: [address] [facility]: [address] [place] [address] [place] CRISIS AND ACCESS LINE: Referrals: PRIMARY CARE, [Primary Care Provider] - 3-5 Days <STACY POND - Last Filed: 11/05/19 10:16> ED Review of Systems ROS: Stated complaint: PSYCHOTIC EPISODE Other details as noted in HPI ED Course Vital Signs 11/03/19 11/03/19 11/03/19 21:00 21:03 22:31 Temperature 98.9 F 98.9 F Pulse Rate 105 H 102 H Respiratory 24 34 H 28 H Rate Blood Pressure 136/60 Blood Pressure 139/60 [Left] O2 Sat by Pulse 89 90 95 Oximetry 11/03/19 11/04/19 11/04/19 22:35 12:42 19:32 Temperature 98.2 F 98.7 F Pulse Rate 96 H 80 94 H Respiratory 28 H 22 18 Rate Blood Pressure Blood Pressure 126/80 144/76 111/59 [Left] O2 Sat by Pulse 96 95 96 Oximetry 11/05/19 01:20 Temperature 97.6 F Pulse Rate 86 Respiratory 18 Rate Blood Pressure Blood Pressure 119/74 [Left] O2 Sat by Pulse 98 Oximetry ED Medical Decision Making - Lab Data Result diagrams: 11/03/19 21:37 11/03/19 21:37 - Medical Decision Making Patient is 34 years old male admitted to the ER for aggressive behavior. Patient has been evaluated by our psychiatric team and advised patient can be discharged home. Patient is currently denying any suicidal or homicidal ideation. Patient also denied any visual or auditory hallucination. Patient is medically and psychiatrically stable for discharge. Critical care attestation.: If time is entered above; I have spent that time in minutes in the direct care of this critically ill patient, excluding procedure time. ED Disposition Is pt being admited?: No
[2019-11-05 10:27] VITALS: BP 133/77
== END 2019-11-05 10:42 | disposition home or self-care (01) ==
LOC: EEVIPCON 20:48 → ED 20:48
DX: F25.0 Schizoaffective disorder, bipolar type (principal); R45.6 Violent behavior; E11.9 Type 2 diabetes mellitus without complications; I10 Essential (primary) hypertension; Z79.899 Other long term (current) drug therapy; Z98.890 Other specified postprocedural states
CPT/HCPCS: 36415; 80048; 80307; 80320; 81001; 85025; G0480

== ENCOUNTER 2020-05-15 20:37 | Emergency (ER) | payer MEDICARE ==
[2020-05-15 21:32] LABS: Basophils # (Auto) 0.1 K/mm3 (0.0-0.1); Basophils % (Auto) 1.1 % (0.0-1.8); Eosinophils # (Auto) 0.2 K/mm3 (0.0-0.4); Eosinophils % (Auto) 1.6 % (0.0-4.3); Hematocrit 43.3 % (35.5-45.6); Hemoglobin 14.8 gm/dl (11.8-15.2); Lymphocytes # (Auto) 4.1 K/mm3 (1.2-5.4); Lymphocytes % (Auto) 29.8 % (13.4-35.0); Mean Corpuscular HGB Conc 34 % (32-34); Mean Corpuscular Volume 90 fl (84-94); Monocytes # (Auto) 0.6 K/mm3 (0.0-0.8); Monocytes % (Auto) 4.2 % (0.0-7.3); Platelet Count 339 K/mm3 (140-440); Red Blood Count 4.84 M/mm3 (3.65-5.03); Red Cell Distribution Width 14.6 % (13.2-15.2)
[2020-05-15 21:37] LABS: Bilirubin,Urine NEG (Negative); Blood,Urine NEG (Negative); Color,Urine Yellow (Yellow); Mucus,Urine FEW /HPF; Protein,Urine <15 mg/dL mg/dL (Negative)
[2020-05-15 21:45] LABS: BUN/Creatinine Ratio 14; Blood Urea Nitrogen 11 mg/dL (9-20); Hemolysis Index 68
[2020-05-15 21:47] LABS: Amphetamine Screen,Urine PRESUMPTIVE NEGATIVE; Benzodiazepines Screen,Urine PRESUMPTIVE NEGATIVE; Cannabinoid Screen,Urine PRESUMPTIVE NEGATIVE; Cocaine Screen,Urine PRESUMPTIVE NEGATIVE; Methadone Screen,Urine PRESUMPTIVE NEGATIVE; Opiate Screen,Urine PRESUMPTIVE NEGATIVE
[2020-05-15] MEDS ORDERED: ZIPRASIDONE 20 MG CAP PO ONE (22:15)
[2020-05-15] MEDS ORDERED: traZODone 50 MG TAB PO ONE (22:17)
--- NOTE | 2020-05-15 23:12 | Emergency Department Report ---
ED Psych HPI - General Chief Complaint: Psych Stated Complaint: MH EVAL/HEARING VOICES Time Seen by Provider: 05/15/20 21:06 Source: patient Mode of arrival: Stretcher - History of Present Illness Initial Comments: 35-year-old male with a past medical history of schizophrenia, diabetes, hypertension, bipolar disorder, and sleep apnea presents to the hospital complaining of auditory hallucinations and be admitted x2 in 3 days. Patient also states he has not been able to sleep well for the past 4 days. It is unclear why patient is not taking his meds. He resides in a shelter. He states that his machining supervisor Pastor Stevens advised him to come to the ER for 48 hours to be put on his medications. Patient does not endorse suicidal homicidal ideation. Is not currently know his medication. As per medical record in January he was placed on Geodon 40 mg twice daily and trazodone 50 mg nightly. Patient states he most recently was on Risperdal and mirtazapine but honestly cannot recall the exact medications or doses. Patient has been seen here multiple times in the past for aggressive behavior at the shelter. Patient states he is scheduled to be placed into a new shelter by Pastor Stevens. - Related Data Previous Rx's Medication Instructions Recorded Last Taken Type Ziprasidone [Geodon] 40 mg PO BID #60 capsule 02/06/20 Unknown Rx traZODone [Desyrel] 50 mg PO QHS #30 tab 02/06/20 Unknown Rx Allergies Allergy/AdvReac Type Severity Reaction Status Date / Time No Known Allergies Allergy Verified 02/20/19 17:06 ED Review of Systems ROS: Stated complaint: MH EVAL/HEARING VOICES Other details as noted in HPI Comment: All other systems reviewed and negative ED Past Medical Hx - Past Medical History Previous Medical History?: Yes Hx Hypertension: Yes Hx Congestive Heart Failure: No Hx Diabetes: Yes Hx Psychiatric Treatment: Yes (bipolar, schizo) Hx Asthma: No Hx COPD: No Additional medical history: Sleep apnea - Surgical History Past Surgical History?: No Additional Surgical History: unale to obtain - Social History Smoking Status: Current Every Day Smoker Substance Use Type: None - Medications Home Medications: Home Medications Medication Instructions Recorded Confirmed Last Taken Type Ziprasidone [Geodon] 40 mg PO BID #60 capsule 02/06/20 Unknown Rx traZODone [Desyrel] 50 mg PO QHS #30 tab 02/06/20 Unknown Rx ED Physical Exam - General Limitations: No Limitations - Other Other exam information: General: No acute distress Head: Atraumatic Eyes: normal appearance ENT: Moist mucous membranes Neck: Normal appearance, no midline tenderness Chest: Clear to auscultation bilaterally CV: Regular rate and rhythm Abdomen: Soft, normal bowel sounds, nontender, nondistended, no rebound or guarding Back: Normal inspection Extremity: Normal inspection, full range of motion Neuro: Alert O x 3, no facial asymmetry, speech clear, no gross motor sensory deficit Psych: Appropriate behavior Skin: No rash ED Course Vital Signs 05/15/20 05/15/20 05/15/20 21:01 22:00 23:59 Temperature 98.9 F 98.6 F Pulse Rate 109 H 96 H Respiratory 20 20 20 Rate Blood Pressure 120/83 Blood Pressure 126/72 [Left] O2 Sat by Pulse 98 98 96 Oximetry - Consultations Consultation #1: 05/15/20 23:12 Mental health has evaluated patient however, it is unclear patient needs refill his medication where his current medications are. I requested that nurse obtain collateral information from his cancer registrar Rodney to determine if patient indeed does need a refill. Discussed the case with medications patient needs to take. Mental health has signed off indicates that he is not a 1013 candidate however, patient may still need further mental health evaluation if he needs to be assessed to start new or additional medications for psychosis. Also given patient's history of aggressive outburst at the shelter it is unclear patient was sent here due to another outburst. The health advised for case management assessment which has been ordered. ED Medical Decision Making - Lab Data Result diagrams: 05/15/20 21:00 05/15/20 21:00 Lab Results 05/15/20 05/15/20 05/15/20 Range/Units 21:00 21:00 21:00 WBC (4.5-11.0) K/mm3 RBC (3.65-5.03) M/mm3 Hgb (11.8-15.2) gm/dl Hct (35.5-45.6) % MCV (84-94) fl MCH (28-32) pg MCHC (32-34) % RDW (13.2-15.2) % Plt Count (140-440) K/mm3 Lymph % (Auto) (13.4-35.0) % [place] % (Auto) (0.0-7.3) % Eos % (Auto) (0.0-4.3) % Baso % (Auto) (0.0-1.8) % Lymph # (Auto) (1.2-5.4) K/mm3 [place] # (Auto) (0.0-0.8) K/mm3 Eos # (Auto) (0.0-0.4) K/mm3 Baso # (Auto) (0.0-0.1) K/mm3 Seg Neutrophils % (40.0-70.0) % Seg Neutrophils # (1.8-7.7) K/mm3 Sodium 136 L (137-145) mmol/L Potassium 4.1 (3.6-5.0) mmol/L Chloride 98.3 (98-107) mmol/L Carbon Dioxide 26 (22-30) mmol/L Anion Gap 16 mmol/L BUN 11 (9-20) mg/dL Creatinine 0.8 (0.8-1.3) mg/dL Estimated GFR > 60 ml/min BUN/Creatinine Ratio 14 % Glucose 115 H (75-100) mg/dL Calcium 9.0 (8.4-10.2) mg/dL Urine Color (Yellow) Urine Turbidity (Clear) Urine pH (5.0-7.0) Ur Specific [place] (1.003-1.030) Urine Protein (Negative) mg/dL Urine Glucose (UA) (Negative) mg/dL Urine Ketones (Negative) mg/dL Urine Blood (Negative) Urine Nitrite (Negative) Urine Bilirubin (Negative) Urine Urobilinogen (<2.0) mg/dL Ur Leukocyte Esterase (Negative) Urine WBC (Auto) (0.0-6.0) /HPF Urine RBC (Auto) (0.0-6.0) /HPF U Epithel Cells (Auto) (0-13.0) /HPF Urine Mucus /HPF Salicylates < 0.3 L (2.8-20.0) mg/dL Urine Opiates Screen Urine Methadone Screen Acetaminophen 5.0 L (10.0-30.0) ug/mL Ur Barbiturates Screen Ur Phencyclidine Scrn Ur Amphetamines Screen U Benzodiazepines Scrn Urine Cocaine Screen U Marijuana (THC) Screen Drugs of Abuse Note Plasma/Serum Alcohol (0-0.07) % 05/15/20 05/15/20 05/15/20 Range/Units 21:00 21:00 Unknown WBC 13.9 H (4.5-11.0) K/mm3 RBC 4.84 (3.65-5.03) M/mm3 Hgb 14.8 (11.8-15.2) gm/dl Hct 43.3 (35.5-45.6) % MCV 90 (84-94) fl MCH 31 (28-32) pg MCHC 34 (32-34) % RDW 14.6 (13.2-15.2) % Plt Count 339 (140-440) K/mm3 Lymph % (Auto) 29.8 (13.4-35.0) % [place] % (Auto) 4.2 (0.0-7.3) % Eos % (Auto) 1.6 (0.0-4.3) % Baso % (Auto) 1.1 (0.0-1.8) % Lymph # (Auto) 4.1 (1.2-5.4) K/mm3 [place] # (Auto) 0.6 (0.0-0.8) K/mm3 Eos # (Auto) 0.2 (0.0-0.4) K/mm3 Baso # (Auto) 0.1 (0.0-0.1) K/mm3 Seg Neutrophils % 63.3 (40.0-70.0) % Seg Neutrophils # 8.8 H (1.8-7.7) K/mm3 Sodium (137-145) mmol/L Potassium (3.6-5.0) mmol/L Chloride (98-107) mmol/L Carbon Dioxide (22-30) mmol/L Anion Gap mmol/L BUN (9-20) mg/dL Creatinine (0.8-1.3) mg/dL Estimated GFR ml/min BUN/Creatinine Ratio % Glucose (75-100) mg/dL Calcium (8.4-10.2) mg/dL Urine Color Yellow (Yellow) Urine Turbidity Clear (Clear) Urine pH 6.0 (5.0-7.0) Ur Specific [place] 1.026 (1.003-1.030) Urine Protein <15 mg/dl (Negative) mg/dL Urine Glucose (UA) Neg (Negative) mg/dL Urine Ketones Neg (Negative) mg/dL Urine Blood Neg (Negative) Urine Nitrite Neg (Negative) Urine Bilirubin Neg (Negative) Urine Urobilinogen 2.0 (<2.0) mg/dL Ur Leukocyte Esterase Neg (Negative) Urine WBC (Auto) 3.0 (0.0-6.0) /HPF Urine RBC (Auto) 2.0 (0.0-6.0) /HPF U Epithel Cells (Auto) < 1.0 (0-13.0) /HPF Urine Mucus Few /HPF Salicylates (2.8-20.0) mg/dL Urine Opiates Screen Urine Methadone Screen Acetaminophen (10.0-30.0) ug/mL Ur Barbiturates Screen Ur Phencyclidine Scrn Ur Amphetamines Screen U Benzodiazepines Scrn Urine Cocaine Screen U Marijuana (THC) Screen Drugs of Abuse Note Plasma/Serum Alcohol < 0.01 (0-0.07) % 05/15/20 Range/Units Unknown WBC (4.5-11.0) K/mm3 RBC (3.65-5.03) M/mm3 Hgb (11.8-15.2) gm/dl Hct (35.5-45.6) % MCV (84-94) fl MCH (28-32) pg MCHC (32-34) % RDW (13.2-15.2) % Plt Count (140-440) K/mm3 Lymph % (Auto) (13.4-35.0) % [place] % (Auto) (0.0-7.3) % Eos % (Auto) (0.0-4.3) % Baso % (Auto) (0.0-1.8) % Lymph # (Auto) (1.2-5.4) K/mm3 [place] # (Auto) (0.0-0.8) K/mm3 Eos # (Auto) (0.0-0.4) K/mm3 Baso # (Auto) (0.0-0.1) K/mm3 Seg Neutrophils % (40.0-70.0) % Seg Neutrophils # (1.8-7.7) K/mm3 Sodium (137-145) mmol/L Potassium (3.6-5.0) mmol/L Chloride (98-107) mmol/L Carbon Dioxide (22-30) mmol/L Anion Gap mmol/L BUN (9-20) mg/dL Creatinine (0.8-1.3) mg/dL Estimated GFR ml/min BUN/Creatinine Ratio % Glucose (75-100) mg/dL Calcium (8.4-10.2) mg/dL Urine Color (Yellow) Urine Turbidity (Clear) Urine pH (5.0-7.0) Ur Specific [place] (1.003-1.030) Urine Protein (Negative) mg/dL Urine Glucose (UA) (Negative) mg/dL Urine Ketones (Negative) mg/dL Urine Blood (Negative) Urine Nitrite (Negative) Urine Bilirubin (Negative) Urine Urobilinogen (<2.0) mg/dL Ur Leukocyte Esterase (Negative) Urine WBC (Auto) (0.0-6.0) /HPF Urine RBC (Auto) (0.0-6.0) /HPF U Epithel Cells (Auto) (0-13.0) /HPF Urine Mucus /HPF Salicylates (2.8-20.0) mg/dL Urine Opiates Screen Presumptive negative Urine Methadone Screen Presumptive negative Acetaminophen (10.0-30.0) ug/mL Ur Barbiturates Screen Presumptive negative Ur Phencyclidine Scrn Presumptive negative Ur Amphetamines Screen Presumptive negative U Benzodiazepines Scrn Presumptive negative Urine Cocaine Screen Presumptive negative U Marijuana (THC) Screen Presumptive negative Drugs of Abuse Note Disclamer Plasma/Serum Alcohol (0-0.07) % - EKG Data -: EKG Interpreted by Me EKG shows normal: sinus rhythm, ST-T waves (No STEMI) Rate: normal Critical Care Time: No Critical care attestation.: If time is entered above; I have spent that time in minutes in the direct care of this critically ill patient, excluding procedure time. ED Disposition Clinical Impression: Schizophrenia Qualifiers: Schizophrenia type: disorganized schizophrenia Qualified Code(s): F20.1 - Disorganized schizophrenia Disposition: DC-01 TO HOME OR SELFCARE Is pt being admited?: No Condition: Stable
[2020-05-16] VITALS: BP 126/72
--- NOTE | 2020-05-16 08:36 | Consultation ---
History of Present Illness - Reason for Consult Consult date: 05/16/20 Reason for consult: MHE Requesting physician: KULDEEP ALVA - History of Present Psychiatric Illness Per ED Provider: 35-year-old male with a past medical history of schizophrenia, diabetes, hypertension, bipolar disorder, and sleep apnea presents to the hosp ital complaining of auditory hallucinations and be admitted x2 in 3 days. Patient also states he has not been able to sleep well for the past 4 days. It is unclear why patient is not taking his meds. He resides in a custodial. He states that his support group manager Pastor Stevens advised him to come to the ER for 48 hours to be put on his medications. Patient does not endorse suicidal homicidal ideation. Is not currently know his medication. As per medical record in January he was placed on Geodon 40 mg twice daily and trazodone 50 mg nightly. Patient states he most recently was on Risperdal and mirtazapine but honestly cannot recall the exact medications or doses. Patient has been seen h ere multiple times in the past for aggressive behavior at the custodial. Patient states he is scheduled to be placed into a new custodial by Pastor Stevens. PEr MHA: Pt is a 35 year old AA male presentign with noncompliance with medications; hearing noises, visual hallucinations, Pt. states he is hearing noies and they are telling him about "people who really don't know him". Pt denies SI or HI. Pt resides at a custodial managed by, "Pastor Veloz." Pt denies any substance use.Pt denies any thoughts of harming himself. Pt is responding to internal stimuli and appears distracted.Pt denies any thoughts or plans to harm others. Pt was calm and cooperative with assessment. Pt is displaying evidence of thought disorder. Pt is reporting active VH. Pt denies auditory hallucinations. PT states 'i am hearing noise". Pt appears to be seeking secondary gain "I just need to stay here for two-three days before I go to my new house". Pt reports that the noises and VH are disturbing and he would like help. Pt is oriented x 4. Pt appears tired, disorganized, and distracted by the internal stimuli. Pt has incongruent mood and affect. Pt carries a diagnosis of Schizophrenia. Pt reports he has been off of his medication. Pt unable to give information for current outpatient mental health providers. Pt has been inpatient many times for psyc stabilization. PAST PSYCHIATRIC HISTORY: Diagnoses: Schizophrenia Suicide attempts or Self-harm behavior: None reported Prior psychiatric hospitalizations: Not Available Substance Abuse history: None reported Previous psychiatric medications tried: Yes Outpatient treatment: PAST MEDICAL HISTORY: None reported Family Psychiatric History: None reported SOCIAL HISTORY Marital Status: Single Living Arrangements: [employer] Employment Status: Disabled Access to guns/weapons: None reported Education: Not Available History of Abuse: Not available Legal History: Not Available REVIEW OF SYSTEMS Constitutional: Negative for weight loss ENT: Negative for stridor Respiratory: Negative for cough or hemoptysis All other systems reviewed and are negative MENTAL STATUS General Appearance and Behavior: age appropriate, poor eye contact Cooperation: Cooperative but with minimal engagement. Psychomotor Behavior: within normal limits, no agitation Mood: Anxious Affect and affective range: incongruent and labile Thought Process: Fluent but Non goal-directed Thought Content: Within reality and logical Speech:Normal volume and Regular rate and rhythm Intellectual Functioning: Average Suicidal Ideation: Denies SI Homicidal Ideation: Denies HI Impulse Control: unimpaired Insight and Judgment: normal insight and judgment Memory: Normal Attention: Normal Orientation: alert and oriented RECOMMENDATIONS MEDICATIONS: Risks, benefits and alternatives of medications discussed with the patient, questions answered and consent obtained from patient. PSYCHOTHERAPY: Supportive psychotherapy provided MEDICAL: Per primary team DELIRIUM PRECAUTIONS: Please re-orient patient frequently, keep lights on during the day, and minimize benzodiazepines and opiates as these medications could worsen patient's confusion. RAT EXTERMINATOR: DISPOSITION: Per primary team; do not recommend inpatient psych treatment at this time LEGAL STATUS: 1013 rescinded FOLLOW-UP: Will sign off Thank you for the consult. Please contact with any questions and/or concerns. Medications and Allergies Allergies Allergy/AdvReac Type Severity Reaction Status Date / Time No Known Allergies Allergy Verified 02/20/19 17:06 Home Medications Medication Instructions Recorded Confirmed Last Taken Type Ziprasidone [Geodon] 40 mg PO BID #60 capsule 02/06/20 Unknown Rx traZODone [Desyrel] 50 mg PO QHS #30 tab 02/06/20 Unknown Rx Mental Status Exam - Vital signs Last Vital Signs Temp 98.6 F 05/15/20 23:59 Pulse 96 H 05/15/20 23:59 Resp 20 05/15/20 23:59 BP 126/72 05/15/20 23:59 Pulse Ox 96 05/15/20 23:59 Results Result Diagrams: 05/15/20 21:00 05/15/20 21:00 Abnormal lab results 05/15/20 05/15/20 05/15/20 Range/Units 21:00 21:00 21:00 WBC (4.5-11.0) K/mm3 Seg Neutrophils # (1.8-7.7) K/mm3 Sodium 136 L (137-145) mmol/L Glucose 115 H (75-100) mg/dL Salicylates < 0.3 L (2.8-20.0) mg/dL Acetaminophen 5.0 L (10.0-30.0) ug/mL 05/15/20 Range/Units 21:00 WBC 13.9 H (4.5-11.0) K/mm3 Seg Neutrophils # 8.8 H (1.8-7.7) K/mm3 Sodium (137-145) mmol/L Glucose (75-100) mg/dL Salicylates (2.8-20.0) mg/dL Acetaminophen (10.0-30.0) ug/mL All other labs normal.
== END 2020-05-16 12:39 | disposition home or self-care (01) ==
LOC: EEVIPCON 20:37 → ED 20:37
DX: F20.0 Paranoid schizophrenia (principal); I10 Essential (primary) hypertension; E11.9 Type 2 diabetes mellitus without complications; F17.200 Nicotine dependence, unspecified, uncomplicated; F31.9 Bipolar disorder, unspecified
CPT/HCPCS: 36415; 80048; 80307; 80320; 81001; 85025; G0480

== ENCOUNTER 2021-01-03 00:37 | Emergency (ER) | payer MEDICARE ==
[2021-01-03 01:33] VITALS: BP 107/79
[2021-01-03 02:13] LABS: Basophils # (Auto) 0.1 K/mm3 (0.0-0.1); Basophils % (Auto) 0.5 % (0.0-1.8); Eosinophils # (Auto) 0.2 K/mm3 (0.0-0.4); Eosinophils % (Auto) 1.5 % (0.0-4.3); Hematocrit 43.7 % (35.5-45.6); Hemoglobin 14.6 gm/dl (11.8-15.2); Lymphocytes # (Auto) 3.4 K/mm3 (1.2-5.4); Lymphocytes % (Auto) 26.5 % (13.4-35.0); Mean Corpuscular HGB Conc 33 % (32-34); Mean Corpuscular Volume 90 fl (84-94); Monocytes # (Auto) 1.1 K/mm3 (0.0-0.8); Monocytes % (Auto) 8.4 % (0.0-7.3); Platelet Count 278 K/mm3 (140-440); Red Blood Count 4.88 M/mm3 (3.65-5.03); Red Cell Distribution Width 14.8 % (13.2-15.2)
[2021-01-03 02:35] LABS: BUN/Creatinine Ratio 8; Blood Urea Nitrogen 7 mg/dL (9-20); Hemolysis Index 12
== END 2021-01-03 07:00 ==
LOC: ED 00:37
DX: R44.0 Auditory hallucinations (principal); Z53.21 Procedure and treatment not carried out due to patient leaving prior to being seen by health care provider
CPT/HCPCS: 36415; 80048; 80320; 85025; G0480

== ENCOUNTER 2021-03-31 23:46 | Emergency (ER) | payer MEDICARE ==
[2021-04-01 00:20] VITALS: BP 145/76
== END 2021-04-01 04:36 | disposition left against medical advice (07) ==
LOC: ED 23:46
DX: R44.0 Auditory hallucinations (principal); Z53.21 Procedure and treatment not carried out due to patient leaving prior to being seen by health care provider

== ENCOUNTER 2021-12-13 01:30 | Emergency (ER) | payer MEDICARE ==
[2021-12-13] MEDS ORDERED: MORPHINE 4 MG/1 ML INJ IV ONE (01:55)
[2021-12-13] MEDS ORDERED: ceFAZolin/NS 1 GM/50 ML 1 GM/50 ML BAG IV ONE (01:59)
[2021-12-13] MEDS ORDERED: MIDAZOLAM 5 MG/5 ML INJ MDV IV NR (02:00)
[2021-12-13 02:39] LABS: Basophils # (Auto) 0.2 K/mm3 (0.0-0.1); Basophils % (Auto) 1.3 % (0.0-1.8); Eosinophils # (Auto) 0.2 K/mm3 (0.0-0.4); Eosinophils % (Auto) 1.2 % (0.0-4.3); Hematocrit 44.9 % (35.5-45.6); Lymphocytes # (Auto) 4.4 K/mm3 (1.2-5.4); Lymphocytes % (Auto) 30.8 % (13.4-35.0); Mean Corpuscular HGB Conc 33 % (32-34); Mean Corpuscular Volume 89 fl (84-94); Platelet Count 388 K/mm3 (140-440); Red Blood Count 5.04 M/mm3 (3.65-5.03); Red Cell Distribution Width 16.5 % (13.2-15.2)
[2021-12-13] MEDS ORDERED: ZIPRASIDONE 20 MG CAP PO ONE (02:39)
[2021-12-13 02:55] LABS: BUN/Creatinine Ratio 14; Blood Urea Nitrogen 11 mg/dL (9-20); Calcium 9.9 mg/dL (8.4-10.2); Hemolysis Index 9
--- NOTE | 2021-12-13 03:10 | Emergency Department Report ---
ED Psych HPI - General Chief Complaint: Psych Stated Complaint: SEEING VOICES Time Seen by Provider: 12/13/21 01:53 Source: patient Mode of arrival: Ambulatory - History of Present Illness Initial Comments: Patient is a 36-year-old male with history of schizophrenia. Patient brought to the emergency room for mental health evaluation. Patient stated that he is hearing voices and is bothering him. When asked about suicidal ideation patient stated that he sometimes have some suicidal ideation but he does not have a specific plan. Patient denied visual hallucination. No homicidal ideation. MD Complaint: suicidal ideation -: days(s) Associated Psychiatric Symptoms: suicidal ideation, auditory hallucinations Associated Symptoms: denies other symptoms If Self Harm: admits thoughts of - Related Data Previous Rx's Medication Instructions Recorded Last Taken Type Ziprasidone [Geodon] 40 mg PO BID #60 capsule 02/06/20 Unknown Rx traZODone [Desyrel] 50 mg PO QHS #30 tab 02/06/20 Unknown Rx Allergies Allergy/AdvReac Type Severity Reaction Status Date / Time No Known Allergies Allergy Verified 09/08/21 13:11 ED Review of Systems ROS: Stated complaint: SEEING VOICES Other details as noted in HPI Comment: All other systems reviewed and negative Constitutional: denies: chills, fever Respiratory: denies: cough, shortness of breath, SOB with exertion, SOB at rest Cardiovascular: denies: chest pain, palpitations Gastrointestinal: denies: abdominal pain, nausea, vomiting, diarrhea, constipa tion, hematemesis, melena, hematochezia Musculoskeletal: denies: back pain Neurological: denies: headache, weakness, numbness, paresthesias, confusion, abnormal gait Psychiatric: auditory hallucinations, suicidal thoughts. denies: anxiety, depression, visual hallucinations, homicidal thoughts ED Past Medical Hx - Past Medical History Hx Hypertension: Yes Hx Congestive Heart Failure: No Hx Diabetes: Yes Hx Psychiatric Treatment: Yes (Bi polar/Schizo affective) Hx Asthma: No Hx COPD: No Additional medical history: Sleep apnea - Surgical History Additional Surgical History: unale to obtain - Social History Smoking Status: Current Every Day Smoker Substance Use Type: None - Medications Home Medications: Home Medications Medication Instructions Recorded Confirmed Last Taken Type Ziprasidone [Geodon] 40 mg PO BID #60 capsule 02/06/20 Unknown Rx traZODone [Desyrel] 50 mg PO QHS #30 tab 02/06/20 Unknown Rx ED Physical Exam - General Limitations: No Limitations General appearance: alert, in no apparent distress - Head Head exam: Present: atraumatic, normocephalic, normal inspection - Eye Eye exam: Present: normal appearance - ENT ENT exam: Present: normal exam, normal orophraynx, mucous membranes moist - Neck Neck exam: Present: normal inspection, full ROM. Absent: tenderness, meningism us - Respiratory Respiratory exam: Present: normal lung sounds bilaterally - Cardiovascular Cardiovascular Exam: Present: regular rate, normal rhythm, normal heart sounds - GI/Abdominal GI/Abdominal exam: Present: soft, normal bowel sounds. Absent: distended, tenderness, guarding, rebound, rigid, organomegaly, mass, bruit, pulsatile mass, hernia - Extremities Exam Extremities exam: Present: normal inspection, full ROM, normal capillary refill. Absent: tenderness, pedal edema, joint swelling, calf tenderness - Back Exam Back exam: Present: normal inspection, full ROM. Absent: CVA tenderness (R), CVA tenderness (L) - Neurological Exam Neurological exam: Present: alert, oriented X3, CN II-XII intact, normal gait, reflexes normal - Psychiatric Psychiatric exam: Present: normal mood, suicidal ideation. Absent: homicidal ideation - Skin Skin exam: Present: warm, intact, normal color ED Course Vital Signs 12/13/21 12/13/21 12/13/21 01:48 01:55 10:40 Temperature 98.4 F 97.7 F Pulse Rate 116 H 98 H Respiratory 16 16 Rate Blood Pressure 133/84 126/79 [Left] O2 Sat by Pulse 96 96 96 Oximetry 12/13/21 18:38 Temperature 97.7 F Pulse Rate 98 H Respiratory 16 Rate Blood Pressure 125/76 [Left] O2 Sat by Pulse 98 Oximetry ED Medical Decision Making - Lab Data Result diagrams: 12/13/21 02:18 12/13/21 02:18 Critical care attestation.: If time is entered above; I have spent that time in minutes in the direct care of this critically ill patient, excluding procedure time. ED Disposition Clinical Impression: Suicidal ideation Schizophrenia Qualifiers: Schizophrenia type: disorganized schizophrenia Qualified Code(s): F20.1 - Disorganized schizophrenia Disposition: [address] [place] [address] Is pt being admited?: No Condition: Stable Referrals: TASHI LEIVA MD [Primary Care Provider] - 3-5 Days
--- NOTE | 2021-12-13 11:04 | Consultation ---
History of Present Illness - Reason for Consult Consult date: 12/13/21 Reason for consult: mental health evaluation - History of Present Psychiatric Illness The patient is a 36 year old male with history of schizophrenia who presents to the for mental health evaluation. The patient was seen this morning. He is sedated due to recent Geodon IM INJ. REVIEW OF SYSTEMS MENTAL STATUS EXAMINATION Diagnoses: Schizophrenia Treatment Plan 1013 Continue home meds PSYCHOTHERAPY: Supportive psychotherapy provided MEDICAL: Per primary team DELIRIUM PRECAUTIONS: Please re-orient patient frequently, keep lights on during the day, and minimize benzodiazepines and opiates as these medications could worsen patient's confusion. HAND SILVERING SUPERVISOR: Per medical team DISPOSITION: Recommend acute psychiatric inpatient treatment. Will follow. Thank you for the consult. Case staffed with Dr. Marinelli Medications and Allergies Medications and Allergies Allergies Allergy/AdvReac Type Severity Reaction Status Date / Time No Known Allergies Allergy Verified 09/08/21 13:11 Home Medications Medication Instructions Recorded Confirmed Last Taken Type Ziprasidone [Geodon] 40 mg PO BID #60 capsule 02/06/20 Unknown Rx traZODone [Desyrel] 50 mg PO QHS #30 tab 02/06/20 Unknown Rx Mental Status Exam - Vital signs Last Vital Signs Temp 97.7 F 12/13/21 10:40 Pulse 98 H 12/13/21 10:40 Resp 16 12/13/21 10:40 BP 126/79 12/13/21 10:40 Pulse Ox 96 12/13/21 10:40 Results Result Diagrams: 12/13/21 02:18 12/13/21 02:18 Abnormal lab results 12/13/21 12/13/21 12/13/21 Range/Units 02:18 02:18 02:18 WBC 14.2 H (4.5-11.0) K/mm3 RBC 5.04 H (3.65-5.03) M/mm3 RDW 16.5 H (13.2-15.2) % [place] # (Auto) 1.0 H (0.0-0.8) K/mm3 Baso # (Auto) 0.2 H (0.0-0.1) K/mm3 Seg Neutrophils # 8.5 H (1.8-7.7) K/mm3 Sodium 136 L (137-145) mmol/L Salicylates < 0.3 L (2.8-20.0) mg/dL Acetaminophen (10.0-30.0) ug/mL 12/13/21 Range/Units 02:18 WBC (4.5-11.0) K/mm3 RBC (3.65-5.03) M/mm3 RDW (13.2-15.2) % [place] # (Auto) (0.0-0.8) K/mm3 Baso # (Auto) (0.0-0.1) K/mm3 Seg Neutrophils # (1.8-7.7) K/mm3 Sodium (137-145) mmol/L Salicylates (2.8-20.0) mg/dL Acetaminophen 5.0 L (10.0-30.0) ug/mL All other labs normal.
[2021-12-13] MEDS ORDERED: ZIPRASIDONE MESYLATE 20 MG VIAL IM PRN (11:30)
[2021-12-13 12:41] LABS: Bilirubin,Urine NEG (Negative); Blood,Urine NEG (Negative); Color,Urine Yellow (Yellow); Protein,Urine <15 mg/dL mg/dL (Negative); RBC,Urine < 1.0 /HPF (0.0-6.0); Urobilinogen,Urine < 2.0 mg/dL (<2.0); WBC,Urine < 1.0 /HPF (0.0-6.0)
[2021-12-13 13:22] LABS: Amphetamine Screen,Urine Negative; Benzodiazepines Screen,Urine Negative; Cannabinoid Screen,Urine Negative; Cocaine Screen,Urine Negative; Methadone Screen,Urine Negative; Opiate Screen,Urine Negative
[2021-12-13 18:40] VITALS: BP 125/76
[2021-12-13] MEDS ORDERED: traZODone 50 MG TAB PO SCH (22:00)
[2021-12-13] MEDS ORDERED: ZIPRASIDONE 40 MG CAP PO SCH (22:00)
== END 2021-12-13 18:38 ==
LOC: ED 01:30
DX: F20.9 Schizophrenia, unspecified (principal); R45.851 Suicidal ideations; Z20.822 Contact with and (suspected) exposure to COVID-19; I10 Essential (primary) hypertension; E11.9 Type 2 diabetes mellitus without complications; G47.30 Sleep apnea, unspecified; F17.290 Nicotine dependence, other tobacco product, uncomplicated
CPT/HCPCS: 36415; 80048; 80307; 81001; 85025; 99285; U0003; 80320; G0480